=== PATIENT | male | born 1960 | race Caucasian/White ===

== ENCOUNTER → 2017-09-10 | Outpatient (CLI) | payer OTHER | LOC: M CARPUL 08:11 | DX: I35.8 Other nonrheumatic aortic valve disorders (principal) | CPT/HCPCS: 93306 ==

== ENCOUNTER → 2019-05-12 | Outpatient (REF) | payer OTHER ==
[2019-05-12 11:43] LABS: BASO % 0.4 % (0.0-1.0); EOS # 0.2 10^3/uL (0.0-0.5); EOS % 2.9 % (0.0-3.0); HEMATOCRIT 46.5 % (42.0-52.0); HEMOGLOBIN 15.7 g/dl (13.5-17.5); LYMPH # 1.3 10^3/uL (1.5-5.0); LYMPH % 23.9 % (24.0-44.0); MEAN CORPUSCULAR HEMOGLOBIN 29.6 pg (27.0-33.0); MEAN CORPUSCULAR HGB CONC 33.8 g/dl (32.0-36.5); MEAN CORPUSCULAR VOLUME 87.7 fl (80.0-96.0); MONO # 0.5 10^3/uL (0.0-0.8); MONO % 8.9 % (0.0-5.0); NEUTROPHILS # 3.5 10^3/uL (1.5-8.5); NEUTROPHILS % 63.4 % (36.0-66.0); PLATELET COUNT, AUTOMATED 218 10^3/uL (150-450); WHITE BLOOD COUNT 5.5 10^3/uL (4.0-10.0)
[2019-05-12 12:11] LABS: ALBUMIN 4.1 GM/DL (3.2-5.2); ALT/SGPT 22 U/L (12-78); BILIRUBIN,TOTAL 0.8 MG/DL (0.2-1.0); BLOOD UREA NITROGEN 8 MG/DL (7-18); CALCIUM LEVEL 9.3 MG/DL (8.5-10.1); CARBON DIOXIDE LEVEL 29 MEQ/L (21-32); CHLORIDE LEVEL 105 MEQ/L (98-107); CHOLESTEROL LEVEL 176 MG/DL (<200); CHOLESTEROL RISK RATIO 3.744 (<5); CREATININE FOR GFR 0.79 MG/DL (0.70-1.30); GLOMERULAR FILTRATION RATE > 60.0 (>56); GLUCOSE, FASTING 96 MG/DL (70-100); HDL CHOLESTEROL 47 MG/DL (>40); LDL CHOLESTEROL 113 MG/DL (<100); NON-HDL-C 129 MG/DL; POTASSIUM SERUM 4.1 MEQ/L (3.5-5.1); SODIUM LEVEL 141 MEQ/L (136-145); TOTAL PROTEIN 7.4 GM/DL (6.4-8.2); TRIGLYCERIDES LEVEL 78 MG/DL (<150)
== END ==
LOC: M SFHCLERA 09:05
PROVIDERS: ATTEND Nurse Practitioner Family
DX: R10.32 Left lower quadrant pain (principal); Z13.220 Encounter for screening for lipoid disorders

== ENCOUNTER → 2019-05-14 | Outpatient (CLI) | payer OTHER ==
[~2019-05-14] MED LIST: propofoL 200 MG/20 ML VIAL As Ordered ONE
--- NOTE | 2019-05-14 08:06 | REP ---
Clinical: Left inguinal/scrotal pain. Technique: Real time chen scale and color Doppler evaluation using linear high frequency Findings: Left-sided fat containing inguinal hernia with a defect of approximately 1.7 cm. The bilateral testicles are normal in contour, size, echogenicity without torsion, infectious/inflammatory process, or mass lesion. Right testicle measures 4.7 x 2.5 x 3.4 cm. Left testicle measures 4.6 x 2.4 x 3.0 cm. Left epididymal cyst measures 7 x 3 x 9 mm. Small left-sided varicoceles measure up to 2.7 mm diameter. Small right hydrocele. Impression: 1. Moderate fat containing left inguinal hernia. 2. Further findings as described above. Electronically Signed by Joseph Kyle MD 05/14/2019 07:59 A
== END ==
LOC: M RAD 06:48
PROVIDERS: ATTEND Nurse Practitioner Family
DX: K40.90 Unilateral inguinal hernia, without obstruction or gangrene, not specified as recurrent (principal)

== ENCOUNTER 2019-05-15 09:53 | Day surgery (SDC) | payer OTHER ==
[~2019-05-15] VITALS: Ht 180.3 cm; Wt 82.5 kg
[~2019-05-15 09:53] MED LIST changes: +NS 1,000 ML IV ONE; -propofoL 200 MG/20 ML VIAL As Ordered ONE
[2019-05-15] MEDS ORDERED: NS 1,000 ML IV ONE (10:30)
--- NOTE | 2019-05-15 12:15 | ROOR ---
Patient Name: Albino Russ Procedure Date: 05/15/2019 11:40 AM Date of : 1960 Age: 58 Room: [facility] Gender: Male Note Status: Finalized Procedure: Colonoscopy Indications: Hematochezia Providers: Konstantin VIRGEN MD Referring MD: Gely QUICK Requesting Provider: Medicines: Monitored Anesthesia Care Complications: No immediate complications. Procedure: Pre-Anesthesia Assessment: - The heart rate, respiratory rate, oxygen saturations, blood pressure, adequacy of pulmonary ventilation, and response to care were monitored throughout the procedure. The Colonoscope was introduced through the anus and advanced to the terminal ileum, with identification of the appendiceal orifice and IC valve. The colonoscopy was performed without difficulty. The patient tolerated the procedure well. The quality of the bowel preparation was good. Findings: The perianal and digital rectal examinations were normal. A polypoid non-obstructing polypoid mass was found in the recto-sigmoid colon (at 17 cm from anal verge). The mass was non-circumferential. The mass measured three cm in length. Oozing was present. This was biopsied with a cold forceps for histology. Area was tattooed with an injection of Puja ink. (tattoo placed just distal to the mass). The exam was otherwise without abnormality. Impression: - 3 cm polypoid ulcerated mass in the recto-sigmoid colon (at 17 cm from verge). Biopsied. Tattooed distal to mass. - The examination was otherwise normal. Recommendation: - Refer to a surgeon at the next available appointment. - Perform CT scan (computed tomography) of the pelvis with contrast at the next available appointment. - My office will call you in the next few days to set you up for this study/exam. Konstantin Virgen MD Konstantin VIRGEN MD 05/15/2019 12:15:13 PM Electronically signed by Konstantin VIRGEN MD Number of Addenda: 0 Note Initiated On: 05/15/2019 11:40 AM Estimated Blood Loss: Estimated blood loss: none.
[2019-05-15 12:40] VITALS: BP 130/74
== END 2019-05-15 12:46 | disposition home or self-care (01) ==
LOC: M OPP 09:53
PROVIDERS: ATTEND Internal Medicine Gastroenterology
DX: C19 Malignant neoplasm of rectosigmoid junction (principal); K92.1 Melena; Z88.0 Allergy status to penicillin; Z88.2 Allergy status to sulfonamides

== ENCOUNTER → 2019-05-21 | Outpatient (CLI) | payer OTHER ==
[~2019-05-21] MED LIST changes: +GASTROGRAFIN SOLUTION 30ML (Q9963) As Ordered ONE; +ISOVUE-370 76% 100ML VIAL (Q9967) As Ordered ONE; -NS 1,000 ML IV ONE
--- NOTE | 2019-05-22 07:10 | REP ---
Clinical: Given history of colon cancer. Technique: Axial contrast enhanced images from the lung bases to the pubic symphysis using 100 ml Isovue 370 intravenous contrast material with coronal and sagittal re-formations. Delayed images of the abdomen obtained. Comparison: None. Findings: Lung bases are clear. Liver demonstrates 1 cm hepatic cyst without further hepatic abnormality noted. Spleen, pancreas, gallbladder, bilateral adrenal glands and left kidney are normal. 3.7 cm right renal mass along the medial mid pole is identified and requires further investigation. No perirenal adenopathy or significant perinephric stranding is appreciated. No hydronephrosis. Incidental 9 mm right renal cyst. Evaluation of the enteric system is without obstruction. There is a somewhat irregular area of mucosal thickening involving the distal sigmoid colon (images 110 - 117) which may reflect malignancy as per the given history. Small pelvic lymph nodes are nonspecific. Colonic diverticulosis noted without acute diverticulitis. Normal terminal ileum, cecum and appendix identified in the right lower quadrant. The Further evaluation the pelvis demonstrates grossly normal bladder and age appropriate prostate/seminal vesicles. Fat containing left inguinal hernia noted. No ascites. No free air. Abdominal aorta and vasculature grossly normal. Musculoskeletal structures demonstrate degenerative changes without focal abnormality. Impression: 1. 3.7 cm right renal mass is consistent with malignancy unless proven otherwise and requires urology consultation. 2. Short segment of asymmetric wall thickening involving the distal sigmoid colon may reflect the given history of neoplasm. Small nonspecific pelvic lymph nodes noted. No ascites. 3. Fat containing left inguinal hernia. 4. Diverticulosis. Electronically Signed by Joseph Kyle MD 05/22/2019 07:01 A
== END ==
LOC: M RAD 06:56
PROVIDERS: ATTEND Internal Medicine Gastroenterology
DX: C19 Malignant neoplasm of rectosigmoid junction (principal); K40.90 Unilateral inguinal hernia, without obstruction or gangrene, not specified as recurrent; N28.89 Other specified disorders of kidney and ureter
CPT/HCPCS: 74177; Q9963; Q9967

== ENCOUNTER → 2019-05-28 | Outpatient (CLI) | payer OTHER | LOC: M LAB 09:56 | PROVIDERS: ATTEND Surgery | DX: C19 Malignant neoplasm of rectosigmoid junction (principal) ==

== ENCOUNTER → 2019-06-09 | Outpatient (CLI) | payer OTHER ==
[2019-06-09 13:33] LABS: HEMATOCRIT 47.5 % (42.0-52.0); HEMOGLOBIN 16.3 g/dl (13.5-17.5); MEAN CORPUSCULAR HGB CONC 34.3 g/dl (32.0-36.5); MEAN CORPUSCULAR VOLUME 87.3 fl (80.0-96.0); PLATELET COUNT, AUTOMATED 227 10^3/uL (150-450); RED BLOOD COUNT 5.44 10^6/uL (4.30-6.10); WHITE BLOOD COUNT 5.6 10^3/uL (4.0-10.0)
[2019-06-09 13:48] LABS: INR 1.07; PROTHROMBIN TIME 13.6 SECONDS (11.8-14.0)
[2019-06-09 14:02] LABS: BLOOD UREA NITROGEN 18 MG/DL (7-18); CALCIUM LEVEL 9.6 MG/DL (8.5-10.1); CARBON DIOXIDE LEVEL 32 MEQ/L (21-32); CHLORIDE LEVEL 105 MEQ/L (98-107); CREATININE FOR GFR 0.78 MG/DL (0.70-1.30); GLOMERULAR FILTRATION RATE > 60.0 (>56); GLUCOSE, FASTING 101 MG/DL (70-100); POTASSIUM SERUM 4.5 MEQ/L (3.5-5.1); SODIUM LEVEL 139 MEQ/L (136-145)
== END ==
LOC: M LRY 11:20
PROVIDERS: ATTEND Urology
DX: Z01.818 Encounter for other preprocedural examination (principal); N28.89 Other specified disorders of kidney and ureter

== ENCOUNTER 2019-06-15 06:01 | Inpatient (IN) | payer OTHER ==
[~2019-06-15] VITALS: Ht 180.3 cm; Wt 81.7 kg
[2019-06-15] VITALS (9 sets, daily range): BP systolic 140–164; BP diastolic 88–98
[~2019-06-15 06:01] MED LIST changes: +ERTAPENEM SODIUM 1 GM in NS MINI-BAG PLUS 50 ML IV ONE; -GASTROGRAFIN SOLUTION 30ML (Q9963) As Ordered ONE; -ISOVUE-370 76% 100ML VIAL (Q9967) As Ordered ONE; +LR 1,000 ML IV ONE
[2019-06-15] MEDS ORDERED: ceFAZolin SOD 2 GM in IV 1 EA IV ONE (07:00)
[2019-06-15] MEDS ORDERED: LIDOCAINE 1% SDV INJ 30 ML VIAL As Ordered ONE (07:20)
[2019-06-15] MEDS ORDERED: BUPIVACAINE/EPIN 0.25% 30 ML VIAL As Ordered ONE (07:20)
[2019-06-15] MEDS ORDERED: BUPIVACAINE HCL 0.25% 30 ML VIAL As Ordered ONE (07:20)
[2019-06-15] MEDS ORDERED: SUGAMMADEX SODIUM 500 MG/5 ML VIAL (BRIDION) As Ordered ONE (08:10)
[2019-06-15] MEDS ORDERED: propofoL 200 MG/20 ML VIAL As Ordered ONE (08:10)
[2019-06-15] MEDS ORDERED: LIDOCAINE 2% INJ 100 MG/5 ML SDV (FOR ANES.) As Ordered ONE (08:10)
[2019-06-15] MEDS ORDERED: MIDAZOLAM INJ 2 MG/2 ML VIAL (J2250) As Ordered ONE (08:10)
[2019-06-15] MEDS ORDERED: fentaNYL 250 MCG/5 ML INJECTION (J3010) As Ordered ONE (08:10)
[2019-06-15] MEDS ORDERED: HYDROmorphone HCL 2 MG/ML 1ML VIAL (J1170) As Ordered ONE (08:10)
[2019-06-15] MEDS ORDERED: METOCLOPRAMIDE INJ 10MG/2ML VIAL (J2765) As Ordered ONE (08:10)
[2019-06-15] MEDS ORDERED: ONDANSETRON 4MG/2ML VIAL (J2405) As Ordered ONE (08:10)
[2019-06-15] MEDS ORDERED: ROCURONIUM BROMIDE 50 MG/5 ML VIAL As Ordered ONE ×3 (08:10→11:32)
[2019-06-15] MEDS ORDERED: dexameTHASONE 4 MG/ML 1ML VIAL (J1100) As Ordered ONE (08:10)
[2019-06-15] MEDS ORDERED: REMIFENTANIL 1MG 3ML VIAL As Ordered ONE ×3 (08:13→10:11)
[2019-06-15] MEDS ORDERED: DESFLURANE 240 ML INHALANT As Ordered ONE (09:46)
[2019-06-15] MEDS ORDERED: ACETAMINOPHEN 1000MG 100ML IV BTL (OFIRMEV) (J0131 PER 10MG) As Ordered ONE (11:32)
[2019-06-15] MEDS ORDERED: LABETALOL HCL 100 MG/20 ML VIAL As Ordered ONE (11:43)
--- NOTE | 2019-06-15 12:14 | ROOPDOC ---
[facility] Report Of Operation Report of Operation DATE OF PROCEDURE: 06/15/19 PREPROCEDURE DIAGNOSES: Right Renal Neoplasm. POSTPROCEDURE DIAGNOSES: Right Renal Neoplasm. PROCEDURE: Right Robotic-assisted Laparoscopic Radical Nephrectomy (adrenal- sparing). SURGEON: Alfredo Corral MD FORMING DEPARTMENT SUPERVISOR: Asuncion Cunningham NP ANESTHESIA: General OPERATIVE INDICATIONS: This is a 58 year old female with an approximately 4cm enhancing solid central right renal neoplasm concerning for malignancy. 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 He was brought to the operating room today for treatment of his right renal neoplasm by and his rectosigmoid cancer by Dr. Magaña. DESCRIPTION OF PROCEDURE: The patient was brought to the operating room and general anesthesia was induced. Prophylactic antibiotics were infused. A Stover catheter was placed under sterile conditions. The patient was then placed in the left lateral decubitus position. All pressure points were appropriately padded and an axillary roll was placed. He was secured to the table with tape. The patient was then prepped and draped in the usual sterile fashion. The initial incision was for an 8mm port in line with the 11th rib along the lateral rectus margin. A Veress needle was then utilized to achieve the pneumoperitoneum. An 8mm port was then placed in through this incision and through which the camera was inserted. There were no injuries from Veress needle placement or initial trocar placement. The remaining ports were then placed under vision. The right hand robotic port was placed along the costal margin in line with the camera port. A 5 mm port was placed just inferior to the xyphoid for access for a liver retractor. Two left robotic ports were placed with one just inferior to the camera port, and the other between the anterior-superior iliac spine and the umbilicus. A 15mm assistant corporation counsel port was placed in between the camera port and the more cephalad left hand robotic port. The robot was then docked. We started by lifting up the liver with a laparoscopic locking Allis clamp. Next the right colon was dissected off of Gerota's fascia. We then Kocherized the duodenum. At this point the inferior vena cava (IVC) was identified. A plane was made onto the lateral aspect of the IVC and this was carried cephalad until the first of the 3 right renal veins was encountered. This was carefully dissected and just inferior to this vein, the right renal artery was identified. This was carefully dissected. The first vein was then ligated and transected with a 45mm robotic vascular stapler. The renal artery was then ligated with 3 Weck clips and transected, leaving 2 Weck clips on the stay side. A second renal vein was encountered more distally on the IVC and was carefully dissected. It was then ligated and transected with a 45mm robotic vascular stapler. The 3rd vein was then identified and was much smaller than the first two. This vein was ligated with Weck clips and then transected. The kidney was then carefully dissected on all sides. The adrenal gland was identified on the upper aspect of the kidney and was dissected away from the kidney using electrocautery. The ureter was identified on the distal aspect and was ligated with Weck clips and then transected. Once this was done the kidney was freed completely. Denisse hemostatic agent was applied over the hilar vessels. The kidney was then placed in a large Endocatch bag for future retrieval. The liver retractor was then removed and the robot was undocked after confirming hemostasis within the abdomen. At this point all of the ports were removed and the case was handed over to Dr. Magaña for him to perform a bowel resection for treatment of the patient's rectosigmoid cancer. The patient tolerated this portion of the procedure very well. ESTIMATED BLOOD LOSS: 5mL INTRAOPERATIVE COMPLICATIONS: None SPECIMENS: Right kidney PLAN: Once Dr. Magaña completes his portion of the procedure, he will extract his specimen and the kidney. The patient will be watched in house until his kidney function is stable and he has return of bowel function. ALFREDO CORRAL MD Jun 15, 2019 12:14
[2019-06-15] MEDS ORDERED: ePHEDrine SULFATE 25 MG/5 ML(5MG/ML) SYRINGE As Ordered ONE (13:39)
[2019-06-15] MEDS ORDERED: PHENYLephrine HCL 500 MCG/5 ML (100MCG/ML) SYRINGE (J2370) As Ordered ONE (13:39)
[2019-06-15] MEDS ORDERED: fentaNYL 100 MCG/2 ML INJECTION (J3010) As Ordered ONE (13:44)
[2019-06-15] MEDS ORDERED: METOCLOPRAMIDE INJ 10MG/2ML VIAL (J2765) IV PRN (14:30)
[2019-06-15] MEDS ORDERED: PERCOCET 5MG/325MG TAB PO PRN (14:30)
[2019-06-15] MEDS ORDERED: fentaNYL 100 MCG/2 ML INJECTION (J3010) IV PRN (14:30)
[2019-06-15] MEDS ORDERED: LR 1,000 ML IV SCH (14:30)
[2019-06-15] MEDS ORDERED: ONDANSETRON 4MG/2ML VIAL (J2405) IV PRN ×2 (14:30→14:45)
[2019-06-15] MEDS ORDERED: MORPHINE 2 MG/ML 1ML VIAL (J2270) IV PRN (14:45)
[2019-06-15] MEDS ORDERED: ACETAMINOPHEN TAB 650MG DOSE (2X325MG) PO PRN (14:45)
[2019-06-15] MEDS: LR 1,000 ML IV SCH (15:00)
[2019-06-15] MEDS: NORCO, ANEXSIA 5/325MG TABLET (HYDROcodone/ACETAMINOPHEN) PO PRN (18:56)
[2019-06-15] MEDS: SENOKOT S TAB PO SCH (20:26)
[2019-06-16] MEDS: LR 1,000 ML IV SCH ×3 (00:09→16:52)
[2019-06-16 02:15] VITALS: BP 139/86
[2019-06-16 06:00] VITALS: BP 146/90
[2019-06-16 06:25] LABS: HEMATOCRIT 42.8 % (42.0-52.0); HEMOGLOBIN 14.6 g/dl (13.5-17.5); MEAN CORPUSCULAR HEMOGLOBIN 29.6 pg (27.0-33.0); MEAN CORPUSCULAR HGB CONC 34.1 g/dl (32.0-36.5); MEAN CORPUSCULAR VOLUME 86.6 fl (80.0-96.0); PLATELET COUNT, AUTOMATED 159 10^3/uL (150-450); RED BLOOD COUNT 4.94 10^6/uL (4.30-6.10); WHITE BLOOD COUNT 7.1 10^3/uL (4.0-10.0)
[2019-06-16 06:47] LABS: ALBUMIN 3.2 GM/DL (3.2-5.2); ALT/SGPT 46 U/L (12-78); BLOOD UREA NITROGEN 14 MG/DL (7-18); CALCIUM LEVEL 8.5 MG/DL (8.5-10.1); CARBON DIOXIDE LEVEL 28 MEQ/L (21-32); CHLORIDE LEVEL 103 MEQ/L (98-107); CREATININE FOR GFR 1.21 MG/DL (0.70-1.30); GLOMERULAR FILTRATION RATE > 60.0 (>56); GLUCOSE, FASTING 128 MG/DL (70-100); SODIUM LEVEL 135 MEQ/L (136-145); TOTAL PROTEIN 6.5 GM/DL (6.4-8.2)
[2019-06-16] MEDS ORDERED: ERTAPENEM SODIUM 1 GM in NS MINI-BAG PLUS 50 ML IV SCH (08:00)
[2019-06-16] MEDS: PANTOPRAZOLE 40MG TAB (PROTONIX) PO SCH (08:20)
[2019-06-16] MEDS: SENOKOT S TAB PO SCH ×2 (08:20→20:17)
[2019-06-16] MEDS: NORCO, ANEXSIA 5/325MG TABLET (HYDROcodone/ACETAMINOPHEN) PO PRN ×3 (08:21→21:11)
[2019-06-16] MEDS: ENOXAPARIN 40 MG/0.4 ML SYRINGE (J1650) SC SCH (08:21)
--- NOTE | 2019-06-16 09:29 | IPNPDOC ---
Subjective Review oF Systems Chief Complaint The patient is a 58-year-old male admitted with a reason for visit of Rectosigmoid Mass. Events since Last Encounter No acute events o/n. Good pain control. No n/v. No f/c/ns. Objective Physical Examination General Exam: Alert, Cooperative, No Acute Distress ABDOMEN EXAM: Soft, Tenderness (mild), Other (incisions clean/dry/intact; VINAY w/ serosang output) Neuro Exam: Normal Speech Psych Exam: Mental status NL, Mood NL Other physical findings catheter draining clear urine Vital Signs/I&O Vital Signs Date Time Temp Pulse Resp B/P (MAP) Pulse Ox O2 Delivery O2 Flow Rate FiO2 06/16/19 08:21 18 06/16/19 06:00 99.2 85 146/90 (108) 95 Nasal Cannula 2.0 I&O- Last 24 Hours up to 6 AM 06/16/19 06:00 Intake Total 7720 ml Output Total 4035 ml Balance 3685 ml Laboratory Data Labs 24H Laboratory Tests 2 06/16/19 05:57: Nucleated Red Blood Cells % (auto) 0.0, Anion Gap 4L, Glomerular Filtration Rate > 60.0, Calcium Level 8.5, Total Bilirubin 1.0, Aspartate Amino Transf (AST/SGOT) 38H, Alanine Aminotransferase (ALT/SGPT) 46, Alkaline Phosphatase 41L, Total Protein 6.5, Albumin 3.2, Albumin/Globulin Ratio 0.97L CBC/BMP Laboratory Tests 06/16/19 05:57 Assessment/Plan Date Seen The patient was seen on 06/16/19. Patient Summary This is a 58 y/o M POD1 s/p R robotic radical nephrectomy (adrenal-sparing) and resection of rectosigmoid mass. He is doing well. Hb 14.6. Cr 1.2, from baseline of 0.8. Good UOP. Plan/VTE VTE Prophylaxis Ordered?: Yes VTE Exclusion Mechanical Proph: N/A:VTE Prophy Ordered VTE Exclusion Pharmacological: N/A:VTE Prophy Ordered Plan/Urinary Catheter Urinary Catheter: D/C Stover Plan - d/c Stover - ok to d/c IVF when patient is taking PO well - encourage PO hydration - strict I/Os - ambulate - diet per general surgery ALFREDO CORRAL MD Jun 16, 2019 09:29
[2019-06-16 10:00] VITALS: BP 152/92
--- NOTE | 2019-06-16 10:38 | RO ---
DATE OF PROCEDURE: 06/15/2019 PREOPERATIVE DIAGNOSIS: Rectosigmoid cancer. POSTOPERATIVE DIAGNOSIS: High rectal cancer. PROCEDURE: Robotic low anterior resection. SURGEON: Dr. Dayo Magaña ASSIST: Dr. Soler, assisted with mobilization of the colon and the anastomosis. ANESTHESIA: General. ESTIMATED BLOOD LOSS (EBL): 30 mL. COMPLICATIONS: None. INDICATIONS FOR PROCEDURE: The patient is a 58-year-old male who had a rectosigmoid mass identified on colonoscopy. Recommendation was to proceed with robotic resection. Risks and benefits of the procedure, not limited to but including, bleeding, infection, hernia formation, damage to surrounding structures, anastomotic leak, and need for further surgery were discussed in detail with the patient. Informed consent was obtained, and procedure was planned. DESCRIPTION OF PROCEDURE: The patient was brought back to operating room 7. After sufficient sedation, the abdomen was sterilely prepped and draped. Next, a time-out was done to confirm proper patient, brought procedure. Following that, an 8 mm port was placed through the previous 15 mm port site that Dr. Valle had used during his right nephrectomy, just lateral to the umbilicus. Once that port was placed, with blunt trocar, the abdomen was insufflated through it up to 50 mmHg. That port was then removed from that port site a little lateral to his right upper quadrant port site. I used his same 12 mm port in the right lower quadrant and his 8 mm port in the right lower quadrant and created a new 8 mm port in the left epigastric area. Once the four ports were placed, robot was connected to the ports. The robot was then docked from the console. The colon was examined until the tattoo site was identified, which was very low. Once that was identified, the colon was mobilized starting lateral to medial taking down the peritoneal reflections along the lateral side of the sigmoid colon all the way down into the rectum. I continued that process from lateral to medial until the ureter was identified. Once that was completed, the colon anteriorly and was going from medial to lateral dissected through the mesentery all the way through, ligating the vessels using the vessel sealer taking down the mesentery all way down until I was at least 5 cm distal to the tattoo location. Once that was completed, the robotic 45 mm stapler with a green load was used. Two separate fires were necessary to transect the colon, which ended up being low to mid rectum. Once that was completed, the distal end of the colon was pulled up out of the pelvis, and the sigmoid was placed down into the pelvis to make sure that there was enough length of the colon mobilized to be able to easily reanastomose. Once that was completed, the anastomosis location was identified. The clip was placed on the mesentery and to identify the location for the transected bowel and make the anastomosis. Once that was completed, the end of the colon was grabbed with a laparoscopic grasper. The bag for the kidney was also grabbed with a grasper. Next, the midline minilaparotomy was created periumbilically. Using cautery, the kidney was removed first and then a wound protector was placed and the colon was brought out. The mesentery was taken down a little bit around the sigmoid where the anastomosis was to be created. The bowel was transected. EEA sizers were placed to determine the size of colon. EEA 25 stapler was then chosen, anvil was placed inside the colon. The colon was stapled across using a KURT-75 blue-load stapler. The anvil was then brought out through the end, and a #3-0 Vicryl suture was placed around it to make sure that there was no leakage. The bowel was placed back inside the abdomen. The 12 port and 15 port sites, fascia was closed from the inside using interrupted figure-of-8 #0 Vicryl sutures. The fascia along the midline incision was then closed with a running #1 PDS suture. Once that was completed, the abdomen was re-insufflated. The anvil was placed down into the pelvis. The EEA stapler was brought in through the rectum. The anastomosis was created. Air was then insufflated into the rectum, and liquid instilled into the pelvis, and were no signs of any air bubbles or leakage. Air was then aspirated out. The Tisseel was placed around the anastomosis. A 19-Tajik Jose drain was then placed into the pelvis and brought out through the right inferior port site, sutured in place with a #2-0 silk suture. The abdomen was then desufflated. Skin incisions were closed with anai. The abdomen cleaned and dried, 4x4 and tape were applied, thus ending procedure.
[2019-06-16 14:00] VITALS: BP 153/90
[2019-06-16 18:00] VITALS: BP 156/90
--- NOTE | 2019-06-16 20:48 | IPNPDOC ---
Text Note Date of Service The patient was seen on 06/16/19. NOTE No acute events overnight. Pain is minimal. No complaints. No flatus or BM, and he has not been out of bed yet. Tolerating clq diet. No nausea or emesis. VSSAF NAD abd - soft, non distended, tender to palpation appropriate, dressing c/d/i, drain is serosanguinous labs - below A) 58y/o male s/p rt nephrectomy and LAR P) clq diet amb in [place] IS advance diet after flatus monitor labs d/c melecio Magaña DO VS,Fishbone, I+O VS, Fishbone, I+O Laboratory Tests 06/16/19 05:57 Vital Signs Date Time Temp Pulse Resp B/P (MAP) Pulse Ox O2 Delivery O2 Flow Rate FiO2 06/16/19 18:00 99.8 113 20 156/90 (112) 95 Nasal Cannula 2.0 I&O- Last 24 Hours up to 6 AM 06/16/19 06:00 Intake Total 7720 ml Output Total 4035 ml Balance 3685 ml MARGY MAGAÑA DO Jun 16, 2019 20:48
[2019-06-16 22:00] VITALS: BP 148/94
[2019-06-17 02:00] VITALS: BP 148/97
[2019-06-17] MEDS: NORCO, ANEXSIA 5/325MG TABLET (HYDROcodone/ACETAMINOPHEN) PO PRN ×3 (03:25→19:45)
[2019-06-17 06:00] VITALS: BP 146/97
[2019-06-17 06:24] LABS: HEMOGLOBIN 14.3 g/dl (13.5-17.5); MEAN CORPUSCULAR HEMOGLOBIN 29.5 pg (27.0-33.0); MEAN CORPUSCULAR VOLUME 86.8 fl (80.0-96.0); PLATELET COUNT, AUTOMATED 165 10^3/uL (150-450); RED BLOOD COUNT 4.84 10^6/uL (4.30-6.10); WHITE BLOOD COUNT 8.5 10^3/uL (4.0-10.0)
[2019-06-17 06:46] LABS: ALBUMIN 3.2 GM/DL (3.2-5.2); ALT/SGPT 63 U/L (12-78); BILIRUBIN,TOTAL 1.1 MG/DL (0.2-1.0); BLOOD UREA NITROGEN 12 MG/DL (7-18); CALCIUM LEVEL 8.8 MG/DL (8.5-10.1); CARBON DIOXIDE LEVEL 27 MEQ/L (21-32); CHLORIDE LEVEL 105 MEQ/L (98-107); CREATININE FOR GFR 1.14 MG/DL (0.70-1.30); GLOMERULAR FILTRATION RATE > 60.0 (>56); GLUCOSE, FASTING 101 MG/DL (70-100); POTASSIUM SERUM 3.9 MEQ/L (3.5-5.1); SODIUM LEVEL 137 MEQ/L (136-145); TOTAL PROTEIN 6.9 GM/DL (6.4-8.2)
--- NOTE | 2019-06-17 07:35 | IPNPDOC ---
Text Note Date of Service The patient was seen on 06/17/19. NOTE No acute events overnight. Pain is minimal. No complaints. No flatus or BM. T olerating clq diet. No nausea or emesis. VSSAF NAD abd - soft, non distended, tender to palpation appropriate, dressing c/d/i, drain is serosanguinous and clearing up labs - below A) 58y/o male s/p rt nephrectomy and LAR P) flq diet amb in [place] IS advance diet after flatus monitor labs Viktor Magaña DO VS,Fishbone, I+O VS, Fishbone, I+O Laboratory Tests 06/17/19 05:59 Vital Signs Date Time Temp Pulse Resp B/P (MAP) Pulse Ox O2 Delivery O2 Flow Rate FiO2 06/17/19 04:03 16 Room Air 06/17/19 02:00 100.1 106 148/97 (114) 93 06/16/19 18:00 2.0 I&O- Last 24 Hours up to 6 AM 06/17/19 06:00 Intake Total 4280 ml Output Total 5905 ml Balance -1625 ml MARGY MAGAÑA DO Jun 17, 2019 07:35
--- NOTE | 2019-06-17 07:36 | IPNPDOC ---
Subjective Review oF Systems Chief Complaint The patient is a 58-year-old male admitted with a reason for visit of Rectosigmoid Mass. Events since Last Encounter No acute events o/n. Good pain control. Ambulated slowly but w/o difficulty yesterday. Tolerating clears. No n/v. No flatus yet. No f/c/ns. Objective Physical Examination General Exam: Alert, Cooperative, No Acute Distress ABDOMEN EXAM: Soft, Tenderness (mild), Other (incisions clean/dry/intact; VINAY w/ serosang output) Skin Exam: Nl turgor and temperature Neuro Exam: Normal Speech Psych Exam: Mental status NL, Mood NL Vital Signs/I&O Vital Signs Date Time Temp Pulse Resp B/P (MAP) Pulse Ox O2 Delivery O2 Flow Rate FiO2 06/17/19 04:03 16 Room Air 06/17/19 02:00 100.1 106 148/97 (114) 93 06/16/19 18:00 2.0 I&O- Last 24 Hours up to 6 AM 06/17/19 06:00 Intake Total 4280 ml Output Total 5905 ml Balance -1625 ml Laboratory Data Labs 24H Laboratory Tests 2 06/17/19 05:59: Nucleated Red Blood Cells % (auto) 0.0, Anion Gap 5L, Glomerular Filtration Rate > 60.0, Calcium Level 8.8, Total Bilirubin 1.1H, Aspartate Amino Transf (AST/SGOT) 38H, Alanine Aminotransferase (ALT/SGPT) 63, Alkaline Phosphatase 40L, Total Protein 6.9, Albumin 3.2, Albumin/Globulin Ratio 0.86L CBC/BMP Laboratory Tests 06/17/19 05:59 Assessment/Plan Date Seen The patient was seen on 06/17/19. Patient Summary This is a 58 y/o M POD2 s/p R robotic radical nephrectomy (adrenal-sparing) and LAR. Doing well. Cr 1.1. Very good UOP. Plan/VTE VTE Prophylaxis Ordered?: Yes VTE Exclusion Mechanical Proph: N/A:VTE Prophy Ordered VTE Exclusion Pharmacological: N/A:VTE Prophy Ordered Plan/Urinary Catheter Urinary Catheter: D/C Stover Plan - encourage PO hydration - ambulate - norco prn pain - strict I/Os - SCDs in bed - lovenox - diet per gen surg ALFREDO CORRAL MD Jun 17, 2019 07:36
[2019-06-17] MEDS ORDERED: FLUBLOK(EGG FREE)(QUAD)INFLUENZA VACC 0.5ML SYRINGE (90682)18YRS&OLDER IM ONE (09:00)
[2019-06-17] MEDS: PANTOPRAZOLE 40MG TAB (PROTONIX) PO SCH (09:44)
[2019-06-17] MEDS: ENOXAPARIN 40 MG/0.4 ML SYRINGE (J1650) SC SCH (09:44)
[2019-06-17] MEDS: SENOKOT S TAB PO SCH ×2 (09:44→20:13)
[2019-06-17 10:00] VITALS: BP 135/95
[2019-06-17 14:00] VITALS: BP 152/98
[2019-06-17 18:00] VITALS: BP 145/97
[2019-06-17 22:00] VITALS: BP 142/92
[2019-06-18 02:00] VITALS: BP 131/88
[2019-06-18 06:00] VITALS: BP 146/89
[2019-06-18 06:14] LABS: HEMOGLOBIN 14.7 g/dl (13.5-17.5); MEAN CORPUSCULAR HEMOGLOBIN 29.6 pg (27.0-33.0); MEAN CORPUSCULAR HGB CONC 33.4 g/dl (32.0-36.5); MEAN CORPUSCULAR VOLUME 88.5 fl (80.0-96.0); PLATELET COUNT, AUTOMATED 173 10^3/uL (150-450); RED BLOOD COUNT 4.97 10^6/uL (4.30-6.10); WHITE BLOOD COUNT 7.4 10^3/uL (4.0-10.0)
[2019-06-18 06:28] LABS: ALBUMIN 3.2 GM/DL (3.2-5.2); ALT/SGPT 48 U/L (12-78); BILIRUBIN,TOTAL 0.9 MG/DL (0.2-1.0); BLOOD UREA NITROGEN 14 MG/DL (7-18); CALCIUM LEVEL 8.5 MG/DL (8.5-10.1); CARBON DIOXIDE LEVEL 30 MEQ/L (21-32); CHLORIDE LEVEL 104 MEQ/L (98-107); CREATININE FOR GFR 1.25 MG/DL (0.70-1.30); GLOMERULAR FILTRATION RATE > 60.0 (>56); GLUCOSE, FASTING 99 MG/DL (70-100); SODIUM LEVEL 138 MEQ/L (136-145); TOTAL PROTEIN 7.2 GM/DL (6.4-8.2)
--- NOTE | 2019-06-18 08:11 | IPNPDOC ---
Subjective Review oF Systems Chief Complaint The patient is a 58-year-old male admitted with a reason for visit of Rectosigmoid Mass. Events since Last Encounter No acute events o/n. Good pain control. Tolerating diet. Had a bm yesterday and this morning. No n/v. Ambulating well. No f/c/ns. Objective Physical Examination General Exam: Alert, Cooperative, No Acute Distress ABDOMEN EXAM: Soft, Tenderness (mild), Other (incisions clean/dry/intact; VINAY w/ serous output) Skin Exam: Nl turgor and temperature Neuro Exam: Normal Speech Psych Exam: Mental status NL, Mood NL Vital Signs/I&O Vital Signs Date Time Temp Pulse Resp B/P (MAP) Pulse Ox O2 Delivery O2 Flow Rate FiO2 06/18/19 06:00 100.0 91 17 146/89 (108) 95 Room Air 06/16/19 18:00 2.0 I&O- Last 24 Hours up to 6 AM 06/18/19 06:00 Intake Total 1750 ml Output Total 1795 ml Balance -45 ml Laboratory Data Labs 24H Laboratory Tests 2 06/18/19 05:50: Nucleated Red Blood Cells % (auto) 0.0, Anion Gap 4L, Glomerular Filtration Rate > 60.0, Calcium Level 8.5, Total Bilirubin 0.9, Aspartate Amino Transf (AST/SGOT) 18, Alanine Aminotransferase (ALT/SGPT) 48, Alkaline Phosphatase 41L, Total Protein 7.2, Albumin 3.2, Albumin/Globulin Ratio 0.80L CBC/BMP Laboratory Tests 06/18/19 05:50 Assessment/Plan Date Seen The patient was seen on 06/18/19. Patient Summary This is a 58 y/o M POD3 s/p R robotic radical nephrectomy (adrenal-sparing) and LAR. Hb stable. Cr 1.25. Very good UOP. Plan/VTE VTE Prophylaxis Ordered?: Yes VTE Exclusion Mechanical Proph: N/A:VTE Prophy Ordered VTE Exclusion Pharmacological: N/A:VTE Prophy Ordered Plan - norco prn pain - encourage PO hydration - strict I/Os - diet per gen surg - possible discharge home today ALFREDO CORRAL MD Jun 18, 2019 08:11
[2019-06-18] MEDS: SENOKOT S TAB PO SCH (08:47)
[2019-06-18] MEDS: PANTOPRAZOLE 40MG TAB (PROTONIX) PO SCH (08:47)
[2019-06-18] MEDS: ENOXAPARIN 40 MG/0.4 ML SYRINGE (J1650) SC SCH (08:47)
[2019-06-18] MEDS ORDERED: HYDR-3715 PO (09:07)
--- NOTE | 2019-06-18 18:08 | DSES ---
DATE OF ADMISSION: 06/15/2019 DATE OF DISCHARGE: 06/18/2019 ADMISSION DIAGNOSIS: Left colon cancer and right renal cancer. POSTOPERATIVE DIAGNOSIS: Left colon cancer and right renal cancer. HOSPITAL COURSE: Patient is a 58-year-old male who presented on June 15 for elective robotic right nephrectomy and low anterior resection. Postoperative day #1 he was doing well. Stover catheter was removed. He was tolerating a clear liquid diet. No nausea or vomiting. Pain was controlled. He was up out of the bed ambulating without any difficulty. Labs were stable his entire admission. Never had any leukocytosis. His creatinines had remained stable. Urine output was stable. He was slowly advanced on his diet over the next 48 hours. Drain in the pelvis remained clear his entire postoperative stay. No signs of any anastomosis leak. Today, June 18, he is tolerating a regular diet, having bowel movements. Feels well, and plan is to discharge home today. He will followup with Dr. Valle. Followup with myself in 2 weeks. He can shower. No lifting more than 20 pounds for 2 weeks. No baths for 5 days. All of his questions are answered, and he will followup with us with any problems.
== END 2019-06-18 14:00 | disposition home or self-care (01) | DRG 221 ==
LOC: M OR 06:01 → M MSPAV 15:50
PROVIDERS: ADMIT Surgery; ATTEND Surgery
PROC: 0DBN4ZZ Excision of Sigmoid Colon, Percutaneous Endoscopic Approach (ICD-10-PCS; 2019-06-15)
PROC: 8E0W4CZ Robotic Assisted Procedure of Trunk Region, Percutaneous Endoscopic Approach (ICD-10-PCS; 2019-06-15)
PROC: 0TT04ZZ Resection of Right Kidney, Percutaneous Endoscopic Approach (ICD-10-PCS; principal; 2019-06-15 07:30)
PROC: 0DBP4ZZ Excision of Rectum, Percutaneous Endoscopic Approach (ICD-10-PCS; 2019-06-15 07:30)
DX: C19 Malignant neoplasm of rectosigmoid junction (principal); C64.1 Malignant neoplasm of right kidney, except renal pelvis; Z88.0 Allergy status to penicillin; Z88.2 Allergy status to sulfonamides; Z79.899 Other long term (current) drug therapy; Z79.1 Long term (current) use of non-steroidal anti-inflammatories (NSAID)

== ENCOUNTER → 2019-06-25 | Outpatient (CLI) | payer OTHER ==
[~2019-06-25] MED LIST changes: -ERTAPENEM SODIUM 1 GM in NS MINI-BAG PLUS 50 ML IV ONE; +HYDR-3715 PO; -LR 1,000 ML IV ONE
[2019-06-25 09:54] LABS: HEMATOCRIT 44.4 % (42.0-52.0); HEMOGLOBIN 14.9 g/dl (13.5-17.5); MEAN CORPUSCULAR HEMOGLOBIN 29.6 pg (27.0-33.0); MEAN CORPUSCULAR HGB CONC 33.6 g/dl (32.0-36.5); MEAN CORPUSCULAR VOLUME 88.3 fl (80.0-96.0); PLATELET COUNT, AUTOMATED 346 10^3/uL (150-450); RED BLOOD COUNT 5.03 10^6/uL (4.30-6.10); WHITE BLOOD COUNT 8.9 10^3/uL (4.0-10.0)
[2019-06-25 10:38] LABS: ALBUMIN 3.6 GM/DL (3.2-5.2); ALT/SGPT 56 U/L (12-78); BILIRUBIN,TOTAL 0.5 MG/DL (0.2-1.0); BLOOD UREA NITROGEN 18 MG/DL (7-18); CALCIUM LEVEL 9.1 MG/DL (8.5-10.1); CARBON DIOXIDE LEVEL 32 MEQ/L (21-32); CHLORIDE LEVEL 104 MEQ/L (98-107); GLOMERULAR FILTRATION RATE > 60.0 (>56); GLUCOSE, FASTING 110 MG/DL (70-100); POTASSIUM SERUM 4.9 MEQ/L (3.5-5.1); SODIUM LEVEL 140 MEQ/L (136-145); TOTAL PROTEIN 7.3 GM/DL (6.4-8.2)
== END ==
LOC: M LAB 09:25
PROVIDERS: ATTEND Urology
DX: C64.1 Malignant neoplasm of right kidney, except renal pelvis (principal); Z90.5 Acquired absence of kidney

== ENCOUNTER → 2019-07-14 | Outpatient (CLI) | payer OTHER ==
--- NOTE | 2019-07-14 13:26 | REP ---
PET/CT: HISTORY: Staging colorectal carcinoma. Rectosigmoid colon. Status post rectosigmoid colon resection. History of renal cell carcinoma status post right nephrectomy. COMPARISONS: Comparison CT study abdomen and pelvis May 21, 2019. TECHNIQUE: 46 minutes following the intravenous injection of a 8.56 mCi dose of F-18 FDG, three-dimensional PET scintigraphy is acquired from the skull base to the proximal thighs. Triplanar noncontrast CT scanning is acquired through the same anatomic range for attenuation correction, and image registration with scan parameters optimized to minimize radiation exposure to the patient. PET scintigraphy and CT datasets were fused and displayed on a workstation with multiplanar and projection display capability. PET/CT FINDINGS: Head and neck soft tissues are unremarkable. There is no abnormal hypermetabolic uptake within the thorax. No abnormal pulmonary parenchymal opacity. In the abdomen and pelvis, there is normal hepatic, splenic, genitourinary and gastrointestinal uptake. The patient is status post right nephrectomy. Minimal postoperative non-hypermetabolic uptake is seen in the nephrectomy bed adjacent to the inferior vena cava. There is mild postoperative uptake in the anterior abdominal wall at the periumbilical region. Maximum standard uptake value 3.76. There is mild uptake at the rectosigmoid colonic anastomosis, maximum standard uptake value 9.19. There is no hypermetabolic pelvic lymphadenopathy visible. No other hypermetabolic uptake is seen in the abdomen or pelvis. IMPRESSION: Postoperative hypermetabolic uptake seen in the periumbilical region of the anterior abdominal wall and at the colocolonic anastomosis in the pelvis. The patient is status post right nephrectomy as well as left colectomy. No evidence of metastatic adenopathy seen. No liver lesion. Electronically Signed by Issac Velazquez MD 07/14/2019 01:29 P
== END ==
LOC: M PLARAD 08:41
PROVIDERS: ATTEND Internal Medicine Hematology
DX: C18.7 Malignant neoplasm of sigmoid colon (principal); Z98.1 Arthrodesis status; Z90.5 Acquired absence of kidney; Z90.49 Acquired absence of other specified parts of digestive tract
CPT/HCPCS: 78815; A9552

== ENCOUNTER → 2019-07-22 | Outpatient (CLI) | payer OTHER ==
[~2019-07-22] MED LIST changes: +LIDOCAINE 1% MDV 20ML VIAL As Ordered ONE; +MIDAZOLAM INJ 2 MG/2 ML VIAL (J2250) As Ordered ONE; +VANCOMYCIN HCL 500 MG/10 ML VIAL (J3370) As Ordered ONE; +diphenhydrAMINE INJ 50MG/ML VIAL (J1200) As Ordered ONE; +fentaNYL 100 MCG/2 ML INJECTION (J3010) As Ordered ONE
--- NOTE | 2019-07-22 12:26 | IRHP ---
[facility] IR Pre-Procedure H & P General Date of Service: Jul 22, 2019 Procedure: Same Day Surgery Interval History and Physical I have seen the patient and reviewed last H & P performed within 30 days. There is no significant interval change. History of Present Illness Chief Complaint The patient is a 58-year-old male admitted with a reason for visit of Kidney Ca. PRE-PROCEDURE DIAGNOSIS: kidney ca HEART: normal rate. LUNGS: normal breathing at rest. ASA Classification ASA Classification: II-Mild systemic disease Mallampati Score: II NPO: Yes Problems with prior sedation: No Obstructive Sleep Apnea: No Plan moderate sedation Allergies Coded Allergies: Penicillins (Verified Allergy, Unknown, RXN A CHILD - UNKNOWN, 06/15/19) as child unaware of reaction type Sulfa (Sulfonamide Antibiotics) (Verified Allergy, Unknown, 06/15/19) as child, unaware of reaction type VS, I&O, 24H, Fishbone Vital Signs/I&O Vital Signs Date Time Temp Pulse Resp B/P (MAP) Pulse Ox O2 Delivery O2 Flow Rate FiO2 07/22/19 11:37 98 82 16 96 Room Air MARIA DEL CARMEN THOMPSON MD Jul 22, 2019 12:26
--- NOTE | 2019-07-22 13:21 | POST-OPPD ---
Postoperative Procedure Note Date Of Procedure: Jul 22, 2019 Time Of Procedure: 13:18 PREOPERATIVE DIAGNOSIS: kidney ca POSTOPERATIVE DIAGNOSIS: same FINDINGS: patent right IJ PROCEDURE: right side port SURGEON: park ANESTHESIA: mod sed ESTIMATED BLOOD LOSS: < 5 ml COMPLICATIONS: none POSTOPERATIVE CONDITION: stable MARIA DEL CARMEN THOMPSON MD Jul 22, 2019 13:21
[2019-07-22 13:45] VITALS: BP 143/89
--- NOTE | 2019-07-22 14:24 | REP ---
IR Ultrasound and fluoroscopy-guided port placement. IR Ultrasound of the neck. IR Moderate sedation. Clinical information: Kidney cancer. Physician: Dr. Ferreira. Procedure: The patient was advised of the benefits, risks, and alternatives of the procedure and informed consent was obtained. A time-out was performed with verification of the patient's name, MRN, site of procedure and type of procedure to be performed. The patient was positioned in the supine position on the angiographic table. The site was prepped and draped in the usual sterile fashion. Moderate sedation was performed by the physician including the presence of an independent trained observer who assisted and monitored the patient's level of consciousness and physiologic status. Following the administration of fentanyl and Versed, the physician spent 45 minutes of continuous face to face time with the patient. Ultrasound of the neck reveals a patent and compressible right internal jugular vein. A chiropractic assistant radiograph reveals no gross abnormality. The neck and anterior chest wall were anesthetized with lidocaine. The right internal jugular vein was accessed using a microintroducer needle under ultrasound guidance, via a lateral approach. An 018 wire was advanced into the superior vena cava, the needle was removed and a microsheath was placed. An Amplatz wire was then passed into the inferior vena cava. An incision at the internal jugular vein access site and anterior chest wall were made using a scalpel. An incision was made at the anterior chest wall. A small pocket was created using a combination of blunt and sharp dissection. A tunneling device was then used to pass the catheter from the pocket to the neck puncture site. An 8-[place] Angio dynamics Smart power port was then positioned in the pocket. The catheter was then measured and cut. The introducer sheath was exchanged for a peel-away sheath. The catheter was passed through the peel-away sheath into the internal jugular vein and the peel-away sheath was removed. The port tip was positioned at the cavoatrial junction. The port was then accessed with a Mesa needle. The port flushes and aspirates well. The puncture site in the neck was closed. The chest wall incision was then closed with 2-0 Vicryl and 4-0 Monocryl. Glue and Steri-Strips were applied. A sterile dressing was then applied. The patient tolerated the procedure well and was returned to the PRU in stable condition. Estimated blood loss: <5 ml. Complications: None. Conclusion: 1. Successful placement of an 8-[place] Angio dynamics Smart power port via the right internal jugular vein. The port is ready for immediate use. 2. Patient to follow up in IR clinic in 2 weeks. Thank you for this referral. Electronically Signed by Josefa Ferreira MD 07/22/2019 02:23 P
== END ==
LOC: M IRPRO 11:07
PROVIDERS: ATTEND Radiology Diagnostic Radiology
DX: C64.9 Malignant neoplasm of unspecified kidney, except renal pelvis (principal); Z88.0 Allergy status to penicillin; Z88.2 Allergy status to sulfonamides

== ENCOUNTER → 2019-08-11 | Outpatient (POV) | payer OTHER ==
[~2019-08-11] MED LIST changes: +ACET-683 PO; +CHLOR25TA PO; -LIDOCAINE 1% MDV 20ML VIAL As Ordered ONE; +LINE1TAB6 PO; -MIDAZOLAM INJ 2 MG/2 ML VIAL (J2250) As Ordered ONE; -VANCOMYCIN HCL 500 MG/10 ML VIAL (J3370) As Ordered ONE; +ZYVO1TAB PO; -diphenhydrAMINE INJ 50MG/ML VIAL (J1200) As Ordered ONE; -fentaNYL 100 MCG/2 ML INJECTION (J3010) As Ordered ONE
--- NOTE | 2019-08-12 09:23 | IRPN ---
[facility] IR Progress Note IR Progress Note DATE: Aug 11, 2019 Tele follow up FOLLOW-UP: status post port placement, patient doing well. No pain, fever or discomfort. Port being used without issues. ON EXAMINATION: Video conference available and demonstrates port site looks good. No redness dehiscence or discharge. One steri strip left at venotomy; will fall off by itself. IMPRESSION: Doing well status post port placement. No further follow up needed unless scheduled by patient and or referring provider. Thank you for this referral Allergies Coded Allergies: Penicillins (Verified Allergy, Unknown, RXN A CHILD - UNKNOWN, 06/15/19) as child unaware of reaction type Sulfa (Sulfonamide Antibiotics) (Verified Allergy, Unknown, 06/15/19) as child, unaware of reaction type MARIA DEL CARMEN THOMPSON MD Aug 12, 2019 09:23
== END ==
LOC: M IRPOV 08:29
PROVIDERS: ATTEND Radiology Diagnostic Radiology
DX: Z45.2 Encounter for adjustment and management of vascular access device (principal)

== ENCOUNTER 2019-08-13 08:45 | Emergency (ER) | payer OTHER ==
[~2019-08-13] VITALS: Ht 177.8 cm; Wt 87.6 kg
[~2019-08-13 08:45] MED LIST changes: -ACET-683 PO; -LINE1TAB6 PO; -ZYVO1TAB PO
[2019-08-13] MEDS ORDERED: ACET-683 PO (08:56)
[2019-08-13 09:52] LABS: AMORPHOUS SEDIMENT SMALL (NEGATIVE); APPEARANCE, URINE CLEAR (CLEAR); BACTERIA, URINE AUTO NEGATIVE (NEGATIVE); BILIRUBIN, URINE AUTO NEGATIVE (NEGATIVE); BLOOD, URINE BLOOD 1+ (NEGATIVE); COLOR, URINE STRAW (YELLOW); GLUCOSE, URINE (UA) AUTO 2+ mg/dL (NEGATIVE); KETONE, URINE AUTO NEGATIVE (NEGATIVE); LEUKOCYTE ESTERASE, URINE AUTO NEGATIVE (NEGATIVE); NITRITE, URINE AUTO NEGATIVE (NEGATIVE); PROTEIN, URINE AUTO NEGATIVE (NEGATIVE); RBC, URINE AUTO 6 /HPF (0-3); SPECIFIC GRAVITY URINE AUTO 1.006 (1.002-1.035); SQUAMOUS EPITHELIAL CELL UR AU 0 /HPF (0-6); UROBILINOGEN, URINE AUTO 0.2 mg/dL (0.0-2.0); WBC, URINE AUTO 0 /HPF (0-3)
--- NOTE | 2019-08-13 09:52 | REP ---
REASON FOR EXAM: Pyrexia. COMPARISON: Frontal view of the chest obtained as part of a rib series on 09/16/2006. The technique utilized in obtaining the radiograph has magnified the cardiac silhouette and accentuated the interstitial markings. In the right lower lobe, there is a 1 cm sized nodule representing a change from the prior exam. Since the last examination, a right-sided mediport device has been placed and the tip of which is in the superior vena cava. The heart is not enlarged. The pleural angles are sharp. The lung caldwell are otherwise clear. The osseous structures are within normal limits. IMPRESSION: 1. There is a small nodule in the right lung lower lobe as described above. Since prior PET/CT of 07/14/2019, which was obtained for colorectal cancer staging, showed no abnormal intrathoracic hypermetabolic activity, the finding on the chest radiograph today is consistent with a benign process, possibly even the patient's nipple shadow. 2. No evidence of acute cardiopulmonary disease. No significant change in the appearance of the lung caldwell otherwise in the aforementioned. Electronically Signed by Sergio Taylor DO 08/13/2019 10:50 A
[2019-08-13 09:59] LABS: BASO % 0.2 % (0.0-1.0); EOS # 0.1 10^3/uL (0.0-0.5); EOS % 0.6 % (0.0-3.0); HEMATOCRIT 41.6 % (42.0-52.0); HEMOGLOBIN 14.5 g/dl (13.5-17.5); LYMPH # 0.1 10^3/uL (1.5-5.0); LYMPH % 0.7 % (24.0-44.0); MEAN CORPUSCULAR HEMOGLOBIN 29.4 pg (27.0-33.0); MEAN CORPUSCULAR HGB CONC 34.9 g/dl (32.0-36.5); MEAN CORPUSCULAR VOLUME 84.2 fl (80.0-96.0); MONO # 0.9 10^3/uL (0.0-0.8); MONO % 7.7 % (0.0-5.0); NEUTROPHILS # 10.5 10^3/uL (1.5-8.5); NEUTROPHILS % 90.1 % (36.0-66.0); PLATELET COUNT, AUTOMATED 139 10^3/uL (150-450); RED BLOOD COUNT 4.94 10^6/uL (4.30-6.10); WHITE BLOOD COUNT 11.6 10^3/uL (4.0-10.0)
[2019-08-13] MEDS ORDERED: SODIUM CHLORIDE 0.9% INJ 10 ML SYR IV PRN (10:15)
[2019-08-13 10:35] LABS: CALCIUM LEVEL 8.4 MG/DL (8.5-10.1); CREATININE FOR GFR 1.44 MG/DL (0.70-1.30); GLOMERULAR FILTRATION RATE 53.6 (>56); POTASSIUM SERUM 4.3 MEQ/L (3.5-5.1)
[2019-08-13] MEDS ORDERED: LINEZOLID 600MG TABLET (ZYVOX) PO ONE (12:00)
[2019-08-13] MEDS ORDERED: ZYVO1TAB PO (12:12)
[2019-08-13 12:18] VITALS: BP 138/89
[2019-08-13] MEDS ORDERED: LINE1TAB6 PO (13:27)
--- NOTE | 2019-08-14 13:29 | ED PDOC ---
Post-Departure Follow-Up deion wilkins faxed formal report of cxr for fu davieg Tri Becerra MD Aug 14, 2019 13:29
== END 2019-08-13 12:34 | disposition home or self-care (01) ==
LOC: M ED 08:45
DX: R50.9 Fever, unspecified (principal); D84.9 Immunodeficiency, unspecified; C18.9 Malignant neoplasm of colon, unspecified; Z79.899 Other long term (current) drug therapy; Z88.0 Allergy status to penicillin; Z88.2 Allergy status to sulfonamides
CPT/HCPCS: 36415; 71045; 80048; 81001; 85025; 87040; 87086; 87486; 87581; 87633; 87798; 93041; 94760; 96374; 96375; 99285; J1642; U0002

== ENCOUNTER → 2019-10-29 | Outpatient (CLI) | payer OTHER ==
[~2019-10-29] MED LIST changes: +ACET-683 PO; +D 1010004 PO; +GASTROGRAFIN SOLUTION 30ML (Q9963) As Ordered ONE; +ISOVUE-370 76% 100ML VIAL As Ordered ONE; +LINE1TAB6 PO; +MULTCAP PO; +ZYVO1TAB PO
--- NOTE | 2019-10-29 11:07 | REP ---
REASON: History of colon cancer. There are no prior chest CTs for comparison. CONTRAST: 100 mL Isovue 370. There is no mediastinal or hilar adenopathy. There are no pleural or pericardial effusions. For a description of the imaged upper abdomen, see CT abdomen and pelvis report made the same day. The imaged osseous structures are within normal limits for the patient's age. There is a Mediport device in place the tip of which is in the superior vena cava. Evaluation of the lung caldwell shows a tiny 4 mm sized nodule in the posterior segment of the right upper lobe abutting the major fissure. The lung caldwell are otherwise clear. IMPRESSION: There is a 4 mm sized nodule in the right upper lobe as described above. According to the revised Fleischner Society criteria, this represents a category 3 lesion for which 3-month followup CT is recommended. Electronically Signed by Sergio Taylor DO 10/29/2019 04:55 P
--- NOTE | 2019-10-29 11:31 | REP ---
REASON: History of right renal carcinoma and colon carcinoma. COMPARISON: 05/21/2019 Since the last examination, the patient has undergone right nephrectomy. CONTRAST: 100 mL Isovue 370. The liver, gallbladder, spleen, pancreas, adrenal glands, and left kidney are unchanged. Two tiny simple hepatic cysts are noted status quo. The abdominal aorta is within normal limits. Once again, there are small para-aortic lymph nodes status quo. Bowel now occupies the right renal fossa secondary to nephrectomy. The bowel loops and their mesenteries are within normal limits. There is no free fluid or free air. There is no intra-abdominal mass or adenopathy. CT PELVIS: Postoperative changes are seen in the sigmoid colon status quo. There is no mass or adenopathy. There is no free fluid or free air. Bone window technique throughout the exam shows chronic degenerative changes in the spine status quo. IMPRESSION: 1. Status post right nephrectomy. 2. No evidence of acute intra-abdominal or intrapelvic disease. Findings as described above. Electronically Signed by Sergio Taylor DO 10/29/2019 04:55 P
== END ==
LOC: M RAD 07:00
PROVIDERS: ATTEND Internal Medicine Hematology & Oncology
DX: C19 Malignant neoplasm of rectosigmoid junction (principal)
CPT/HCPCS: 71260; 74177; Q9963; Q9967

== ENCOUNTER → 2020-02-01 | Outpatient (CLI) | payer OTHER ==
[~2020-02-01] MED LIST changes: -GASTROGRAFIN SOLUTION 30ML (Q9963) As Ordered ONE
--- NOTE | 2020-02-04 09:40 | REP ---
CONTRAST ENHANCED CHEST CT USING 75 ML ISOVUE-370 CONTRAST MATERIAL CLINICAL: History of colon cancer. TECHNIQUE: Axial contrast enhanced images from the thoracic inlet to the upper abdomen with coronal and sagittal reformations using 75 mL Isovue-370 intravenous contrast material. FINDINGS: Bilateral lung caldwell are well-aerated and clear. No consolidation, pleural effusion, or pneumothorax. No significant nodule or mass lesion appreciated. Tracheobronchial tree is patent. No axillary, hilar, or mediastinal adenopathy noted. Atherosclerotic changes to the coronary arteries noted without cardiomegaly or pericardial effusion. Thoracic aorta and pulmonary vasculature appear normal. Infusaport identified within the anterior right chest wall and catheter extending into the superior vena cava (SVC). Surrounding musculoskeletal structures are intact and without acute osseous abnormality. Limited upper abdomen demonstrates normal bilateral adrenal glands and evidence for prior right nephrectomy. IMPRESSION: No acute mediastinal or pleural parenchymal process appreciated. No evidence for metastatic disease. MTDD
== END ==
LOC: M RAD 09:51
PROVIDERS: ATTEND Internal Medicine Hematology & Oncology
DX: Z85.038 Personal history of other malignant neoplasm of large intestine (principal)
CPT/HCPCS: 71260; Q9967

== ENCOUNTER → 2020-06-09 | Outpatient (CLI) | payer OTHER ==
[~2020-06-09] MED LIST changes: -ISOVUE-370 76% 100ML VIAL As Ordered ONE; +VITMTA PO
== END ==
LOC: M LABSMTC 11:04
PROVIDERS: ATTEND Anesthesiology
DX: Z01.812 Encounter for preprocedural laboratory examination (principal); Z20.822 Contact with and (suspected) exposure to COVID-19

== ENCOUNTER 2020-06-14 12:03 | Day surgery (SDC) | payer OTHER ==
[~2020-06-14] VITALS: Ht 180.3 cm; Wt 81.6 kg
[~2020-06-14 12:03] MED LIST changes: +NS 1,000 ML IV ONE
--- OUTSIDE RECORDS SUMMARY | 2020-06-14 12:12 | CCD ---
Author Author [facility] Organization [facility] Address Unknown Phone Unavailable Care Team Providers Care Collector Of [employer] Name Role Phone WES BURDICK Unavailable Unavailable GAMA VIRGEN MD Unavailable Unavailable GAMA VIRGEN MD Unavailable Unavailable GAMA VIRGEN MD Unavailable Unavailable GAMA VIRGEN MD Unavailable Unavailable GAMA VIRGEN MD Unavailable Unavailable GAMA VIRGEN MD Unavailable Unavailable GAMA VIRGEN MD Unavailable Unavailable GAMA VIRGEN MD Unavailable Unavailable GAMA VIRGEN MD Unavailable Unavailable GAMA VIRGEN MD Unavailable Unavailable GAMA VIRGEN MD Unavailable Unavailable GAMA VIRGEN MD Unavailable Unavailable GAMA VIRGEN MD Unavailable Unavailable GAMA VIRGEN MD Unavailable Unavailable GAMA VIRGEN MD Unavailable Unavailable GAMA VIRGEN MD Unavailable Unavailable GAMA VIRGEN MD Unavailable Unavailable GAMA VIRGEN MD Unavailable Unavailable GAMA VIRGEN MD Unavailable Unavailable GAMA VIRGEN MD Unavailable Unavailable GAMA VIRGEN MD Unavailable Unavailable GAMA VIRGEN MD Unavailable Unavailable GAMA VIRGEN MD Unavailable Unavailable GAMA VIRGEN MD Unavailable Unavailable GAMA VIRGEN MD Unavailable Unavailable GAMA VIRGEN MD Unavailable Unavailable GAMA VIRGEN MD Unavailable Unavailable REINDL, GAMA GRULLON Unavailable Unavailable REINDL, GAMA GRULLON Unavailable Unavailable REINDL, GAMA GRULLON Unavailable Unavailable REINDL, GAMA GRULLON Unavailable Unavailable REINDL, GAMA GRULLON Unavailable Unavailable REINDL, GAMA GRULLON Unavailable Unavailable REINDL, GAMA GRULLON Unavailable Unavailable REINDL, GAMA GRULLON Unavailable Unavailable REINDL, GAMA GRULLON Unavailable Unavailable REINDL, GAMA GRULLON Unavailable Unavailable REINDL, GAMA GRULLON Unavailable Unavailable REINDL, GAMA GRULLON Unavailable Unavailable REINDL, GAMA GRULLON Unavailable Unavailable REINDL, GAMA GRULLON Unavailable Unavailable REINDL, GAMA GRULLON Unavailable Unavailable REINDL, GAMA GRULLON Unavailable Unavailable REINDL, GAMA GRULLON Unavailable Unavailable BRYDEN, A MARGY DO Unavailable Unavailable BRYDEN, A MARGY DO Unavailable Unavailable BRYDEN, A MARGY DO Unavailable Unavailable BRYDEN, A MARGY DO Unavailable Unavailable BRYDEN, A MARGY DO Unavailable Unavailable BRYDEN, A MARGY DO Unavailable Unavailable BRYDEN, A MARGY DO Unavailable Unavailable BRYDEN, A MARGY DO Unavailable Unavailable BRYDEN, A MARGY DO Unavailable Unavailable BRYDEN, A MARGY DO Unavailable Unavailable BRYDEN, A MARGY DO Unavailable Unavailable BRYDEN, A MARGY DO Unavailable Unavailable BRYDEN, A MARGY DO Unavailable Unavailable BRYDEN, A MARGY DO Unavailable Unavailable BRYDEN, A MARGY DO Unavailable Unavailable BRYDEN, A MARGY DO Unavailable Unavailable BRYDEN, A MARGY DO Unavailable Unavailable BRYDEN, A MARGY DO Unavailable Unavailable BRYDEN, A MARGY DO Unavailable Unavailable BRYDEN, A MARGY DO Unavailable Unavailable BRYDEN, A MARGY DO Unavailable Unavailable BRYDEN, A MARGY DO Unavailable Unavailable BRYDEN, A MARGY DO Unavailable Unavailable BRYDEN, A MARGY DO Unavailable Unavailable BRYDEN, A MARGY DO Unavailable Unavailable BRYDEN, A MARGY DO Unavailable Unavailable BRYDEN, A MARGY DO Unavailable Unavailable BRYDEN, A MARGY DO Unavailable Unavailable LARIOS, RINKI Unavailable Unavailable LARIOS, RINKI Unavailable Unavailable LARIOS, RINKI Unavailable Unavailable LARIOS, RINKI Unavailable Unavailable LARIOS, RINKI Unavailable Unavailable LARIOS, RINKI Unavailable Unavailable LARIOS, RINKI Unavailable Unavailable LARIOS, RINKI Unavailable Unavailable LARIOS, RINKI Unavailable Unavailable LARIOS, RINKI Unavailable Unavailable LARIOS, RINKI Unavailable Unavailable LARIOS, RINKI Unavailable Unavailable LARIOS, RINKI Unavailable Unavailable LARIOS, RINKI Unavailable Unavailable LARIOS, RINKI Unavailable Unavailable LARIOS, RINKI Unavailable Unavailable LARIOS, RINKI Unavailable Unavailable LARIOS, RINKI Unavailable Unavailable LARIOS, RINKI Unavailable Unavailable LARIOS, RINKI Unavailable Unavailable LARIOS, RINKI Unavailable Unavailable LARIOS, RINKI Unavailable Unavailable LARIOS, RINKI Unavailable Unavailable LARIOS, RINKI Unavailable Unavailable LARIOS, RINKI Unavailable Unavailable LARIOS, RINKI Unavailable Unavailable LARIOS, RINKI Unavailable Unavailable LARIOS, RINKI Unavailable Unavailable LARIOS, RINKI Unavailable Unavailable LARIOS, RINKI Unavailable Unavailable LARIOS, RINKI Unavailable Unavailable LARIOS, RINKI Unavailable Unavailable LARIOS, RINKI Unavailable Unavailable LARIOS, RINKI Unavailable Unavailable LARIOS, RINKI Unavailable Unavailable LARIOS, RINKI Unavailable Unavailable LARIOS, RINKI Unavailable Unavailable LARIOS, RINKI Unavailable Unavailable LARIOS, RINKI Unavailable Unavailable LARIOS, RINKI Unavailable Unavailable LARIOS, RINKI Unavailable Unavailable LARIOS, RINKI Unavailable Unavailable LARIOS, RINKI Unavailable Unavailable LARIOS, RINKI Unavailable Unavailable LARIOS, RINKI Unavailable Unavailable LARIOS, RINKI Unavailable Unavailable LARIOS, RINKI Unavailable Unavailable LARIOS, RINKI Unavailable Unavailable LARIOS, RINKI Unavailable Unavailable LARIOS, RINKI Unavailable Unavailable LARIOS, RINKI Unavailable Unavailable LARIOS, RINKI Unavailable Unavailable LARIOS, RINKI Unavailable Unavailable LARIOS, RINKI Unavailable Unavailable LARIOS, RINKI Unavailable Unavailable LARIOS, RINKI Unavailable Unavailable LARIOS, RINKI Unavailable Unavailable LARIOS, RINKI Unavailable Unavailable LARIOS, RINKI Unavailable Unavailable LARIOS, RINKI Unavailable Unavailable LARIOS, RINKI Unavailable Unavailable LARIOS, RINKI Unavailable Unavailable LARIOS, RINKI Unavailable Unavailable LARIOS, RINKI Unavailable Unavailable LARIOS, RINKI Unavailable Unavailable LARIOS, RINKI Unavailable Unavailable LARIOS, RINKI Unavailable Unavailable LARIOS, RINKI Unavailable Unavailable Re-disclosure Warning The records that you are about to access may contain information from federally-assisted alcohol or drug abuse programs. If such information is present, then the following federally mandated warning applies: This information has been disclosed to you from records protected by federal confidentiality rules (42 CFR part 2). The federal rules prohibit you from making any further disclosure of this information unless further disclosure is expressly permitted by the written consent of the person to whom it pertains or as otherwise permitted by 42 CFR part 2. A general authorization for the release of medical or other information is NOT sufficient for this purpose. The Federal rules restrict any use of the information to criminally investigate or prosecute any alcohol or drug abuse patient.The records that you are about to access may contain highly sensitive health information, the redisclosure of which is protected by Article 27-F of the [facility] Public Health law. If you continue you may have access to information: Regarding HIV / AIDS; Provided by facilities licensed or operated by the [facility] Office of Mental Health; or Provided by the [facility] Office for People With Developmental Disabilities. If such information is present, then the following [facility] mandated warning applies: This information has been disclosed to you from confidential records which are protected by state law. State law prohibits you from making any further disclosure of this information without the specific written consent of the person to whom it pertains, or as otherwise permitted by law. Any unauthorized further disclosure in violation of state law may result in a fine or residential sentence or both. A general authorization for the release of medical or other information is NOT sufficient authorization for further disc losure. Allergies and Adverse Reactions Type Description Substance Reaction Status Data Source(s ) Drug Class SULFA ANTIBIOTICS SULFA ANTIBIOTICS [facility] DRUG INGREDI PENICILLIN G PENICILLIN G [facility] Drug allergy Penicillin (For Allergies Use Only) Drug allergy doesn 't know Active eCW1 ([facility]) Seasonal Seasonal Seasonal itchy eyes, watery eyes Active eCW1 ([facility]) Sulfa (for allergy use only) Sulfa (for allergy use only) Carlos lfa (for allergy use only) doesn't know Active eCW1 ([facility]) Seasonal Seasonal Seasonal itchy eyes, watery eyes Active eCW1 ([facility]) Sulfa (for allergy use only) Sulfa (for allergy use only) Carlos lfa (for allergy use only) doesn't know Active eCW1 ([facility]) Seasonal Seasonal Seasonal itchy eyes, watery eyes Active eCW1 ([facility]) Sulfa (for allergy use only) Sulfa (for allergy use only) Carlos lfa (for allergy use only) doesn't know Active eCW1 ([facility]) Seasonal Seasonal Seasonal itchy eyes, watery eyes Active eCW1 ([facility]) Sulfa (for allergy use only) Sulfa (for allergy use only) Carlos lfa (for allergy use only) doesn't know Active eCW1 ([facility]) Seasonal Seasonal Seasonal itchy eyes, watery eyes Active eCW1 ([facility]) Sulfa (for allergy use only) Sulfa (for allergy use only) Carlos lfa (for allergy use only) doesn't know Active eCW1 ([facility]) Encounters Encounter Providers Location Date Indications Data Source(s ) Outpatient Attender: GAMA Villarreal/Staci/Burt/Bora guerrero 06/01/2020 09:15:00 AM EST [facility] ([facility] Outpatient [address] [facility] [phone] 01/25/2020 12:00:00 AM EDT eCW1 (Replaced by [facility]) Outpatient Attender: JOSE CARLOS Cyrender: WES NewsomeA-ONCCACTR 11/12/2019 12:00:00 AM EDT - 11/12/2019 12:29:51 PM [facility] Outpatient 08/25/2019 05:41:00 AM EDT [facility] [place] [address] [place] [phone] 08/14/2019 12:00:00 AM EDT eCW1 (Replaced by [facility]) Outpatient 08/07/2019 05:13:00 AM EDT [facility] Outpatient [address] [place] [address] Y [phone] 07/24/2019 12:00:00 AM EDT eCW1 (Replaced by [facility]) [facility] [address] [place] [phone] 07/03/2019 12:00:00 AM EDT eCW1 (Replaced by [facility]) [facility] [address] [place] [phone] 06/26/2019 12:00:00 AM EST eCW1 (Replaced by [facility]) [facility] [address] [place] [phone] 06/23/2019 12:00:00 AM EST eCW1 (Replaced by [facility]) [facility] [address] [place] [address], [place] [phone] 06/23/2019 12:00:00 AM EST eCW1 (Replaced by [facility]) [facility] [address] [facility] [address] 06/09/2019 12:00:00 AM EST eCW1 (Replaced by [facility]) [facility] [address] [place] [address], [place] [phone] 06/03/2019 12:00:00 AM EST eCW1 (Replaced by [facility]) [facility] [address] [place] [address], [place] [address] 06/01/2019 12:00:00 AM EST eCW1 (Replaced by [facility]) Outpatient 05/31/2019 08:27:00 PM EST [facility] [address] [place] [address], [place] [phone] 05/28/2019 12:00:00 AM EST eCW1 (Replaced by [facility]) Outpatient Attender: MARGY Francisco/Staci/Burt/Wilton martinez 05/26/2019 10:00:00 AM EST [facility] ([facility] Outpatient Attender: GAMA Villarreal/Miko/Bora guerrero 05/13/2019 09:30:00 AM EST [facility] ([facility] [address] [place] [address], [place] [address] 05/13/2019 12:00:00 AM EST eCW1 (Replaced by [facility]) [facility] [address] [place] [address], [place] [address] 05/12/2019 12:00:00 AM EST eCW1 (Replaced by [facility]) [facility] [address] [place] [address], [place] [phone] 05/04/2019 12:00:00 AM EST eCW1 (Replaced by [facility]) Medications Medication Brand Name Start Date Product Form Dose Route Admi nistrative Instructions Pharmacy Instructions Status Indications Reaction Description Data Source(s) Magnesium Hydroxide 80 MG/ML Oral Suspension Milk Of Magnesi a 06/01/2020 12:00:00 AM EST ORAL active M [facility] ([facility], ) Suprep Bowel Prep Kit Suprep Bowel Prep Kit 06/01/2020 12:00:00 AM EST active [facility] ([facility], ) No Active Medications 06/25/2019 12:00:00 AM EST active [facility] ([facility], ) 5-325 mg 06/18/2019 12:00:00 AM EST tablet 20 TAKE 1 TABLET BY MOUTH EVERY 6 HOURS NEEDED FOR MILD/MODERATE PAIN (PS 1-7) MAXIMUM DAILY DOSE = 4 TABLETS TAKE 1 TABLET BY MOUTH EVERY 6 HOURS NEEDED FOR MILD/MODERATE PAIN (PS 1-7) MAXIMUM DAILY DOSE = 4 TABLETS SOLD: 06/18/2019 [facility] 500 mg 06/09/2019 12:00:00 AM EST tablet 6 TAKE 2 TABLETS BY MOUTH AT 2:00PM AND 10:00PM DAY BEFORE SURGERY, 2 TABLETS AT 6:00AM MORNING OF SURGERY TAKE 2 TABLETS BY MOUTH AT 2:00PM AND 10:00PM DAY BEFORE SURGERY, 2 TABLETS AT 6:00AM MORNING OF SURGERY SOLD: 06/10/2019 [facility] 500 mg 06/09/2019 12:00:00 AM EST tablet 3 TAKE 1 TABLET BY MOUTH AT 2:00PM AND 10:00PM DAY BEFORE SURGERY, 1 TABLET AT 6:00AM MORNING OF SURGERY TAKE 1 TABLET BY MOUTH AT 2:00PM AND 10:00PM DAY BEFORE SURGERY, 1 TABLET AT 6:00AM MORNING OF SURGERY SOLD: 06/10/2019 [facility] Metronidazole 500 MG Oral Tablet [Flagyl] Flagyl 06/08/2019 12:00 :00 AM EST ORAL completed [facility] ([facility], ) Neomycin Sulfate 500 MG Oral Tablet Neomycin Sulfate 06/08/2019 12:00:00 AM EST ORAL completed [facility] ([facility], ) Magnesium Hydroxide 80 MG/ML Oral Suspension Milk Of Magnesi a 05/13/2019 12:00:00 AM EST ORAL completed [facility] ([facility], ) Suprep Bowel Prep Kit Suprep Bowel Prep Kit 05/13/2019 12:00:00 AM EST completed [facility] ([facility], ) Insurance Providers Payer name Policy type / Coverage type Policy ID Covered democrat ID Covered democrat's relationship to holt Policy Holt Plan Information CHUCK [id number] SP [id number] [place] [place] [id number] S [id number] CHUCK I [id number] Self [id number] AN[employer]mercial [id number] CHUCK [id number] SP [id number] [employer] [place] 302/307 [id number] SP [id number] [place] [place] 302/307 [id number] SP [id number] [place] [place] 302/307 [id number] SP [id number] [employer] [place] 302/307 [id number] SP [id number] [employer] 306/806 [id number] SP [id number] Problems, Conditions, and Diagnoses Code Display Name Description Problem Type Effective Dates Data Source(s) Z90.5 Absent kidney History of nephrectomy, unilateral Probl em 06/23/2019 12:00:00 AM EST eCW1 (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) Z90.5 Absent kidney History of nephrectomy, unilateral Probl em 06/23/2019 12:00:00 AM EST eCW1 (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) C18.9 [id number] Colon adenocarcinoma Problem 06/09/2019 12:0 0:00 AM EST eCW1 ([facility]) C18.9 [id number] Colon adenocarcinoma Problem 06/09/2019 12:0 0:00 AM EST eCW1 ([facility]) Z01.818 Pre-procedure evaluation check Preop testing Problem 06/01/2019 12:00:00 AM EST eCW1 ([facility]) Z01.818 Pre-procedure evaluation check Preop testing Problem 06/01/2019 12:00:00 AM EST eCW1 ([facility]) N28.89 Disorder of kidney and/or ureter Renal mass, right Pro blem 05/28/2019 12:00:00 AM EST eCW1 ([facility]) N28.89 Disorder of kidney and/or ureter Renal mass, right Pro blem 05/28/2019 12:00:00 AM EST eCW1 ([facility]) Surgeries/Procedures Procedure Description Date Indications Data Source(s) Laparoscopy Surgical Colectomy Partial W/Anastomosis W/Colop rocto 06/15/2019 12:00:00 AM EST [facility] ([facility]) Laparoscopy Surgical Colectomy Partial W/Anastomosis W/Colop rocto 06/15/2019 12:00:00 AM EST [facility] ([facility]) Colonoscopy Flexible Proximal To Splenic Flexure W/Biopsy Si ngle/ 05/15/2019 12:00:00 AM EST [facility] ([facility]) Colonoscopy,W/Directed Submucosal Injections, Any Substance 05/15/2019 12:00:00 AM EST [facility] ([facility]) Results ID Date Data Source [id number] 06/09/2020 11:00:00 AM EST [facility] Name Value Range Interpretation Code Description Data Melany rce(s) Supporting Document(s) SARS coronavirus 2 RNA Not Detected [facility] This lab was ordered by [facility] and reported by [facility]. ID Date Data Source [id number] 11/20/2019 10:49:23 PM EDT [facility] Name Value Range Interpretation Code Description Data Melany rce(s) Supporting Document(s) Progress Note [facility] OEZZUi6hAkPKFwDh23/VFGxjDNWpv8XdPRdpPVq8HUmwSLVxD5BcSYV3bV8uDAD4KXkRAwCdAnZjRmOu [facility] [file] svp digital ad sales+lYkXA8SXbSNrDyJfcy4pp3zww9M4ktKbiB/W5TN [file] Alv1otynhrYMYyuggynwGbTWF+PiANCj4+DQplbmRv ArcOStQ5IXOqo8IvDIs7JR2QAUWiEUuhUM9GAQHphI8oMNyvGL3LZyY1YWJjQSHUOsUaK84fySFrZSk8 Q1QrZnGtLRJfGkzxYDPiQKlrDuQpBHJyVtLeDEbcVK2+ID4+ICdiKO0KEIesjlGlPWQuCx2SSCApLQLh GH5iBPTvMWJtD3M7gZzpYFOPMhYyF2yguemeBL1gND MeE372aNbhsdYeODByIWGmYf6BLOUdDDN1FELesIOrRAMvZJRCDIvwOI3XrBBzNVI0fB6zEDqnRKAeNO GtJ2rGAaOziGnzYW39oJshytOimMGxFBd+Mo5KSA9ey4GrCAf0zpWcVRozPIQ9KVatENPkAUEySFRjQY J4ZPE7WEHODtXzNXIeIJFdNBwkXRIqVLLqit8UTCPb MNE2MSQ1LUQdLRUcLQHkLMntHBSyCHZwTSE8DXXtPBYqNP3ILjHmKGPpGGDhGMocDBNwUVIimp0LGAEc RPDuJKO4FlQgGKAmQEFkWUsjBZJlRUA0SuUmZZZuFUFlJB1IGxSvHWLpZFd6HWCdZITyCELghs5SBSNw KFRxUUw1ZXMyCYRoUCPqDPguNREgRRHxWDN0DCZhQT LhMG4CRnRkGXAhDvD8WNWsGMMkPTDrdw0KQUMvBMT3PnlwLJAgQIBxZYVbIGteMPCxUYT5YHhwVAVrQF WgRF5SMnRnHZWiGRo5ZncnHVNcLJDgdg0IVGUwTTGiNAe4PKMiNLTcNPYeILjsVZFnDAHoXJX5SMDdQJ JsZY4CIjXzRXDyOrFiCkQrGFVrIXDbfs2FXLDjYDHb EVsxMAXbWOYfLGUpZJzyYFOrCSB8UTYzKWMqWYGaRA1WOpCoKGQaBkM6IGMfSXMiWHSfbf8KPYRtZHOf IiP1SGFdIPWiDXPwUFnkHJEmGFL4AhvmNHIcLLGbNB1LLtEsGUJjWhmuPOVyMNZaOVTnks1ITDYoOYTz JqV5WgImGPMxJTVhMIskTMGlYRW5PtBjKYHfAJVlHY 4QCeVyRZYxFNQrYiDoBEUnGXDsza9KJFXhNKD9NbohZrLdTMZuOGCaVFbiIFBlEDVqZNXiLXMzAAXsOH 3MGaEhIORkDFM3RuOeJJPmBMYgpj1XWQMbOVM5KoX2OYByYVPsDSGcNPsnFPBuAUN1YzYiVOOiCOAyCJ 2RLnWgIAQrTED3OQAkFFKvYWSrsb4JHYEqJLH3VPv8 LYBfGCYgQCQeFZxdDHEfHGR1IGY2RRNuXVDmJU4QNpAcDYUeEvAvEBXpJLDzFYXroj0YGAQkQUF2RIP3 DyBoVGVjPIUeDSovDKWkDRZwRlE0KMZqFMXkCF9DQqKxUAScKnN9QTJnJVWzSTYmxy3BBZCwLDX9JXr5 MWQeDHDoXCBiZFqpHJEiLAHkKpS8SVTzGEBxYQ2WQr RcUKPxMjSnUeszZXOjFAGthc5UMIZlBKQ8GVreUdLuYUCgTDBeELfsHKStFWLwJgo3ACKvRYAjHJ8DTx PgFRChBnRsDEpwECLsVRBaev0UHRRbKSH6QypqNvOcYVGwAJMiUGu3szDgyTXpMPi9WK9ZA2RbvbHmYF QGIh8Ln024MQN6VLFoBr2MD4atGv8lWHKuUAIABd5Q DQu2UVO3CmUuOANnMAXzJHJ1PWC5FsZ4ReJ7B1Z0FPHaXEO+RAuqHnr9XHKcGXL3WMAnPXnxDCahCdrx LRl2BoK4W4JaLt6eDNLWVq1+UDuinNOsnBthEKKVOhR0HMsfSXdmXVRXJo9G ID Date Data Source [id number] 11/20/2019 10:49:18 PM EDT [facility] Name Value Range Interpretation Code Description Data Melany rce(s) Supporting Document(s) Progress Note [facility] UZXCBs9oLbYVCdGp07/FJFtuCWBvu6ZdHZjgVXz7AJjuUKLjV3NmVYJ8lJ2yIJW0ASwWBfJiRfVvAbPw lbm [file] [id number]= ID Date Data Source [id number] 08/13/2019 09:24:00 AM EDT [facility] Name Value Range Interpretation Code Description Data Melany rce(s) Supporting Document(s) SARS CORONAVIRUS 2 RNA [facility] This lab was ordered by [facility] and reported by [facility]. ID Date Data Source [id number] 05/28/2019 10:02:00 AM EST [facility] Name Value Range Interpretation Code Description Data Melany rce(s) Supporting Document(s) Carcinoembryonic Ag [Mass/volume] in Serum or Plasma < 0.5 ng/mL Normal (applies to non-numeric results) [facility], ) THE CEA ASSAY IS PERFORMED ON THE [employer] BY CHEMILUMINESCENCE AND SHOULD NOT BE COMPARED INTERCHANGEABLY WITH OTHER METHODS. IT SHOULD NOT BE USED ALONE A SCREENING TEST OR DIAGNOSIS FOR THE PRESENCE OR ABSENCE OF MALIGNANT DISEASE. PREDICTIONS OF DISEASE RECURRENCE SHOULD NOT BE BASED SOLELY ON VALUES OBTAINED FROM SERIAL PATIENT SERUM VALUES. ID Date Data Source [id number] 05/15/2019 12:00:00 PM EST JUAN ([facility], ) Name Value Range Interpretation Code Description Data Melany rce(s) Supporting Document(s) Surgical pathology study (SEE NOTE) [facility] FINAL DIAGNOSIS Rectosigmoid mass, biopsies: Moderately differentiated adenocarcinoma of colon. -4/TR 05/18/2019 - 1326 CLINICAL DIAGNOSIS Rectal bleeding 05/18/2019 - 726 GROSS DIAGNOSIS Received in formalin labeled "rectosigmoid mass" are several fragments of ramos soft tissue aggregating 1 x 1 x 0.3 cm. All in one. -YZ 05/18/2019 - 726 Signed Renetta Nogueira M.D. 05/18/2019 1342 Procedure Social History Code Duration Value Status Description Data Source(s ) Smoking 01/25/2020 12:00:00 AM EDT Never Smoker completed Never S moker eCW1 ([facility]) Vital Signs ID Date Data Source UNK Name Value Range Interpretation Code Description Data Source(s) Body surface area Derived from formula 2.02 m2 2.02 m2 [facility] ([facility]) Body weight 82.102 kg 82.102 kg [facility] ([facility]) [place] body weight 172 [lb_av] 172 [lb_av] [facility] Body mass index (BMI) [Ratio] 25.2 kg/m2 25.2 k g/m2 [facility] ([facility]) Body weight 181.00 [lb_av] 181.00 [lb_av] [facility] ([facility]) Body height 71 [in_i] 71 [in_i] [facility] ([facility]) 5'11" Diastolic blood pressure 86 mm[Hg] 86 mm[Hg] [facility] ([facility]) Systolic blood pressure 145 mm[Hg] 145 mm[Hg] [facility] Diastolic blood pressure mm[Hg] eCW1 ([facility]) Systolic blood pressure 128 mm[Hg] 128 mm[Hg] e CW1 ([facility]) Body temperature 97.9 [degF] 97.9 [degF] eCW1 ( [facility]) Respiratory rate 17 /min 17 /min eCW1 ([facility]) Heart rate 93 /min 93 /min eCW1 ([facility]) Body mass index (BMI) [Ratio] 27.76 kg/m2 27.76 kg/m2 eCW1 ([facility]) Body height 69 [in_i] 69 [in_i] eCW1 ([facility]) Body weight 188 [lb_av] 188 [lb_av] eCW1 ([facility]) Diastolic blood pressure 72 mm[Hg] 72 mm[Hg] [facility] ([facility]) Systolic blood pressure 120 mm[Hg] 120 mm[Hg] M EDENT ([facility]) Body surface area Derived from formula 2.00 m2 2.00 m2 [facility] ([facility]) Body weight 80.060 kg 80.060 kg [facility] ([facility]) [place] body weight 172 [lb_av] 172 [lb_av] MED[facility] T ([facility]) Body mass index (BMI) [Ratio] 24.6 kg/m2 24.6 k g/m2 [facility] ([facility]) Body weight 176.50 [lb_av] 176.50 [lb_av] [facility] T ([facility]) Body height 71 [in_i] 71 [in_i] [facility] ([facility]) 5'11" Diastolic blood pressure mm[Hg] eCW1 ([facility]) Systolic blood pressure 128 mm[Hg] 128 mm[Hg] e CW1 ([facility]) Body temperature 99.2 [degF] 99.2 [degF] eCW1 ( [facility]) Respiratory rate 17 /min 17 /min eCW1 ([facility]) Heart rate 96 /min 96 /min eCW1 ([facility]) Body mass index (BMI) [Ratio] 26.58 kg/m2 26.58 kg/m2 W1 ([facility]) Body height 69 [in_us] 69 [in_us] eCW1 ([facility]) Body weight Measured 180 [lb_av] 180 [lb_av] eC W1 ([facility]) Diastolic blood pressure 93 mm[Hg] 93 mm[Hg] eCW1 ([facility]) Systolic blood pressure 146 mm[Hg] 146 mm[Hg] e CW1 ([facility]) Body temperature 97.9 [degF] 97.9 [degF] eCW1 ( [facility]) Respiratory rate 16 /min 16 /min eCW1 ([facility]) Heart rate 82 /min 82 /min eCW1 ([facility]) Body mass index (BMI) [Ratio] 27.02 kg/m2 27.02 kg/m2 eCW1 ([facility]) Body height 69 [in_us] 69 [in_us] eCW1 ([facility]) Body weight Measured 183 [lb_av] 183 [lb_av] eC W1 ([facility]) Diastolic blood pressure mm[Hg] eCW1 ([facility]) Systolic blood pressure 122 mm[Hg] 122 mm[Hg] e CW1 ([facility]) Body temperature 98.2 [degF] 98.2 [degF] eCW1 ( [facility]) Respiratory rate 17 /min 17 /min eCW1 ([facility]) Heart rate 87 /min 87 /min eCW1 ([facility]) Body mass index (BMI) [Ratio] 26.87 kg/m2 26.87 kg/m2 eCW1 ([facility]) Body height 69 [in_us] 69 [in_us] eCW1 ([facility]) Body weight Measured 182 [lb_av] 182 [lb_av] eC W1 ([facility]) Body weight 82.669 kg 82.669 kg MEDENT ([facility], ) Body mass index (BMI) [Ratio] 25.4 kg/m2 25.4 k g/m2 MEDENT ([facility], ) Body weight 182.25 [lb_av] 182.25 [lb_av] MEDEN T ([facility], ) Body height 71 [in_i] 71 [in_i] MEDENT ([facility], ) 5'11" Diastolic blood pressure 90 mm[Hg] 90 mm[Hg] [facility] ([facility]) Systolic blood pressure 144 mm[Hg] 144 mm[Hg] [facility] Body weight 84.823 kg 84.823 kg [facility] ([facility]) Body mass index (BMI) [Ratio] 26.1 kg/m2 26.1 k g/m2 MEDENT ([facility]) Body weight 187.00 [lb_av] 187.00 [lb_av] MEDEN T ([facility]) Body height 71 [in_i] 71 [in_i] [facility] ([facility]) 5'11" Diastolic blood pressure 88 mm[Hg] 88 mm[Hg] [facility] ([facility]) Systolic blood pressure 131 mm[Hg] 131 mm[Hg] [facility] ([facility]) Diastolic blood pressure 78 mm[Hg] 78 mm[Hg] eCW1 ([facility]) Systolic blood pressure 136 mm[Hg] 136 mm[Hg] e CW1 ([facility]) Body temperature 98.4 [degF] 98.4 [degF] W1 ( [facility]) Respiratory rate 18 /min 18 /min W1 ([facility]) Heart rate 76 /min 76 /min W1 ([facility]) Body mass index (BMI) [Ratio] 27.20 kg/m2 27.20 kg/m2 W1 ([facility]) Body height 69 [in_us] 69 [in_us] eCW1 ([facility]) Body weight Measured 184.2 [lb_av] 184.2 [lb_av ] eCW1 ([facility]) Diastolic blood pressure 75 mm[Hg] 75 mm[Hg] eCW1 ([facility]) Systolic blood pressure 133 mm[Hg] 133 mm[Hg] e CW1 ([facility]) Body temperature 96.1 [degF] 96.1 [degF] eCW1 ( [facility]) Respiratory rate 18 /min 18 /min eCW1 ([facility]) Heart rate 93 /min 93 /min eCW1 ([facility]) Body mass index (BMI) [Ratio] 27.17 kg/m2 27.17 kg/m2 eCW1 ([facility]) Body height 69 [in_us] 69 [in_us] eCW1 ([facility]) Body weight Measured 184 [lb_av] 184 [lb_av] eC W1 ([facility]) ID Date Data Source [id number] 11/20/2019 10:49:23 PM EDT [facility] Name Value Range Interpretation Code Description Data Source(s) WEIGHT RECORDED 187 lb 187 lb [facility] Body height Measured 67 in 67 in [facility]
--- OUTSIDE RECORDS SUMMARY | 2020-06-14 12:12 | CCD | Continuity of Care Document ---
Author Author Albino ALMONTE MD Organization Unknown Address [address] [place] [id number] Phone [phone] Care Team Providers Care Physician Coding Specialist Name Role Phone Gely Baltazar AUTM [phone] Konstantin Almonte MD AUTM [phone] Problems Description No Information Available Social History Type Date Description Comments Sex Unknown ETOH Use Occasionally consumes alcohol ETOH Use Rarely consumes alcohol Tobacco Use Start: Unknown Denies Smoking Recreational Drug Use Denies Drug Use Allergies, Adverse Reactions, Alerts Active Allergies Reaction Severity Comments Date Penicillins 04/23/2013 Sulfa 04/23/2013 Medications Active Medications SIG Qnty Indications Ordering Provide r Date Suprep Bowel Prep Kit 17.5-3.13-1.6GM/177ML Solution as directed - see dr mathew instructions 1Kit C19 Konstantin Almonte MD 06/01/2020 Milk Of Magnesia 7.75% Suspension take 45 milliliters by mouth about 1-2 days before colonoscopy prep 360ml C19 Konstantin Almonte MD 06/01/2020 Immunizations Description No Information Available Vital Signs Date Vital Result Comment 06/01/2020 10:08am BP Systolic 145 mmHg BP Diastolic 86 mmHg Height 71 inches 5'11" Weight 181.00 lb BMI (Body Mass Index) 25.2 kg/m2 [place] Body Weight 172 lb Weight 82.102 kg BSA (Body Surface Area) 2.02 m2 06/25/2019 8:42am BP Systolic 120 mmHg BP Diastolic 72 mmHg Height 71 inches 5'11" Weight 176.50 lb BMI (Body Mass Index) 24.6 kg/m2 [place] Body Weight 172 lb Weight 80.060 kg BSA (Body Surface Area) 2.00 m2 Results Description No Information Available Procedures Description No Information Available Medical Devices Description No Information Available Encounters Type Date Location Provider Dx Diagnosis Office Visit 06/01/2020 10:15a [facility] Konstantin Almonte MD 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 mosis status Assessments Date Code Description Provider 06/01/2020 C19 Malignant neoplasm of rectosigmo id junction Konstantin Almonte MD 06/01/2020 Z98.0 Intestinal bypass and anastomosi s status Konstantin Almonte MD Plan of Treatment 06/01/2020 - Konstantin Almonte MD* C19 Malignant neoplasm of rectosigmoid junction * Z98.0 Intestinal bypass and anastomosis status * * New Medication:* Suprep Bowel Prep Kit 17.5-3.13-1.6 GM/177ML * Milk Of Magnesia 7.75 % * New Orders:* Colonoscopy, Ordered: 06/01/20 * Recommendations:* I would recommend he have a colonoscopy now, and would repeat colonoscopy every 2 years for next 6-8 years (in view of early appearance of interval colon cancer). He is currently in remission. He needs 1 year post op colonoscopy Functional Status Description No Information Available Mental Status Description No Information Available Referrals Description No Information Available
[2020-06-14] MEDS ORDERED: propofoL 200 MG/20 ML VIAL As Ordered ONE ×2 (14:48→14:55)
[2020-06-14] MEDS ORDERED: LIDOCAINE 2% 100MG/5ML SDV (FOR ANES.) As Ordered ONE (15:01)
--- NOTE | 2020-06-14 15:22 | ROOR ---
Patient Name: Albino Russ Procedure Date: 06/14/2020 2:47 PM Date of : 1960 Age: 59 Room: [facility] Gender: Male Note Status: Finalized Procedure: Colonoscopy Indications: High risk colon cancer surveillance: Personal history of colon cancer Providers: Konstantin ALMONTE MD Referring MD: [facility] Requesting Provider: Medicines: Monitored Anesthesia Care Complications: No immediate complications. Procedure: Pre-Anesthesia Assessment: - The heart rate, respiratory rate, oxygen saturations, blood pressure, adequacy of pulmonary ventilation, and response to care were monitored throughout the procedure. The Colonoscope was introduced through the anus and advanced to the cecum, identified by appendiceal orifice and ileocecal valve. The colonoscopy was performed without difficulty. The patient tolerated the procedure well. The quality of the bowel preparation was fair. Findings: The perianal and digital rectal examinations were normal. There was evidence of a prior end-to-end colo-rectal anastomosis at 13 cm proximal to the anus. The anastomosis was characterized by erythematous, friable polypoid tissue. This was biopsied with a cold forceps for histology. The colon exam was otherwise without abnormality. Impression: - Preparation of the colon was suboptimal/fair. - End-to-end colo-rectal anastomosis at 13 cm from verge. The anastomosis is characterized by erythematous, friable polypoid tissue. Biopsied to r/o recurrent malignancy. - The colon examination was otherwise normal. Recommendation: - Await pathology results. Procedure Code(s): --- Professional --- 00758, Colonoscopy, flexible; with biopsy, single or multiple Diagnosis Code(s): --- Professional --- Z85.038, Personal history of other malignant neoplasm of large intestine CPT copyright 2019 [employer]. All rights reserved. The codes documented in this report are preliminary and upon middle card tender review may be revised to meet current compliance requirements. Konstantin Almonte MD Konstantin ALMONTE MD 06/14/2020 3:22:20 PM Electronically signed by Konstantin ALMONTE MD Number of Addenda: 0 Note Initiated On: 06/14/2020 2:47 PM Estimated Blood Loss: Estimated blood loss: none.
[2020-06-14 15:35] VITALS: BP 129/83
== END 2020-06-14 15:45 | disposition home or self-care (01) ==
LOC: M OPP 12:03
PROVIDERS: ATTEND Internal Medicine Gastroenterology
DX: Z12.11 Encounter for screening for malignant neoplasm of colon (principal); Z85.038 Personal history of other malignant neoplasm of large intestine; K63.5 Polyp of colon; Z85.528 Personal history of other malignant neoplasm of kidney; Z88.0 Allergy status to penicillin; Z88.2 Allergy status to sulfonamides; Z79.899 Other long term (current) drug therapy; Z80.3 Family history of malignant neoplasm of breast; Z82.49 Family history of ischemic heart disease and other diseases of the circulatory system

== ENCOUNTER → 2020-08-02 | Outpatient (POV) | payer OTHER ==
[~2020-08-02] VITALS: Ht 180.3 cm; Wt 80.5 kg
[~2020-08-02] MED LIST changes: -NS 1,000 ML IV ONE
[2020-08-02 11:05] VITALS: BP 147/90
--- NOTE | 2020-08-04 09:16 | IRPN ---
[facility] IR Progress Note IR Progress Note DATE: Aug 02, 2020 FOLLOW-UP: Port placed 1 year ago by me for treatment for colon cancer. Patient has completed treatment. Port worked well. Patient would like port removed. Patient is not on any blood thinners. ON EXAMINATION: On examination, port site appears good. No redness, cellulitis or tenderness. IMPRESSION: Patient will be scheduled for port removal. Thank you for this referral Allergies Coded Allergies: Penicillins (Verified Allergy, Unknown, RXN A CHILD - UNKNOWN, 06/15/19) as child unaware of reaction type Sulfa (Sulfonamide Antibiotics) (Verified Allergy, Unknown, 06/15/19) as child, unaware of reaction type VS,Fishbone, I+O VS, Fishbone, I+O Vital Signs Date Time Temp Pulse Resp B/P (MAP) Pulse Ox O2 Delivery O2 Flow Rate FiO2 08/02/20 11:05 97.9 77 20 147/90 (109) 97 Room Air MARIA DEL CARMEN THOMPSON MD Aug 04, 2020 09:16
== END ==
LOC: M IRPOV 11:00
PROVIDERS: ATTEND Radiology Diagnostic Radiology
DX: Z45.2 Encounter for adjustment and management of vascular access device (principal); C18.9 Malignant neoplasm of colon, unspecified; Z88.0 Allergy status to penicillin; Z88.2 Allergy status to sulfonamides

== ENCOUNTER → 2020-08-09 | Outpatient (CLI) | payer OTHER ==
[2020-08-09 13:25] LABS: BLOOD UREA NITROGEN 23 MG/DL (7-18); CALCIUM LEVEL 9.7 MG/DL (8.5-10.1); CARBON DIOXIDE LEVEL 30 MEQ/L (21-32); CHLORIDE LEVEL 104 MEQ/L (98-107); CHOLESTEROL LEVEL 210 MG/DL (<200); CHOLESTEROL RISK RATIO 4.117 (<5); CREATININE FOR GFR 1.15 MG/DL (0.70-1.30); GLOMERULAR FILTRATION RATE > 60.0 (>56); GLUCOSE, FASTING 90 MG/DL (70-100); HDL CHOLESTEROL 51 MG/DL (>40); LDL CHOLESTEROL 138 MG/DL (<100); NON-HDL-C 159 MG/DL; POTASSIUM SERUM 4.9 MEQ/L (3.5-5.1); SODIUM LEVEL 138 MEQ/L (136-145); TRIGLYCERIDES LEVEL 106 MG/DL (<150)
== END ==
LOC: M WUC 09:47
PROVIDERS: ATTEND Nurse Practitioner Family
DX: Z00.00 Encounter for general adult medical examination without abnormal findings (principal)

== ENCOUNTER → 2020-09-06 | Outpatient (POV) | payer OTHER ==
[~2020-09-06] VITALS: Ht 180.3 cm; Wt 81.8 kg
[2020-09-06 11:10] VITALS: BP 132/89
--- NOTE | 2020-09-07 10:51 | IRPN ---
[facility] IR Progress Note IR Progress Note DATE: September 06, 2020 FOLLOW-UP: Patient is status post port removal. Patient states he is doing well without fevers or chills or pain. ON EXAMINATION: Port removal site appears to be healing well. Steri-Strips are still in place. No redness, swelling or discharge IMPRESSION: Doing well status post port removal. No further follow-up scheduled unless initiated by patient and/or referring provider. Thank you for this referral Allergies Coded Allergies: Penicillins (Verified Allergy, Unknown, RXN A CHILD - UNKNOWN, 06/15/19) as child unaware of reaction type Sulfa (Sulfonamide Antibiotics) (Verified Allergy, Unknown, 06/15/19) as child, unaware of reaction type VS,Fishbone, I+O VS, Fishbone, I+O Vital Signs Date Time Temp Pulse Resp B/P (MAP) Pulse Ox O2 Delivery O2 Flow Rate FiO2 09/06/20 11:10 97.2 76 20 132/89 (103) 97 Room Air MARIA DEL CARMEN THOMPSON MD September 07, 2020 10:51
== END ==
LOC: M IRPOV 11:02
PROVIDERS: ATTEND Radiology Diagnostic Radiology
DX: Z45.2 Encounter for adjustment and management of vascular access device (principal)

== ENCOUNTER → 2020-11-12 | Outpatient (CLI) | payer OTHER | LOC: M LABSMTC 09:03 | PROVIDERS: ATTEND Anesthesiology | DX: Z01.812 Encounter for preprocedural laboratory examination (principal); Z20.822 Contact with and (suspected) exposure to COVID-19 ==

== ENCOUNTER 2020-11-17 07:29 | Day surgery (SDC) | payer OTHER ==
[~2020-11-17] VITALS: Ht 180.3 cm; Wt 79.6 kg
[~2020-11-17 07:29] MED LIST changes: +CLINDAMYCIN 600 MG in IV 1 EA IV ONE; +LIDOCAINE 1% MDV 20ML VIAL SQ PRN; +LR 1,000 ML IV ONE
[2020-11-17] MEDS ORDERED: SUGAMMADEX SODIUM 500 MG/5 ML VIAL (BRIDION) As Ordered ONE (08:09)
[2020-11-17] MEDS ORDERED: LIDOCAINE 2% 100MG/5ML SDV (FOR ANES.) As Ordered ONE (08:09)
[2020-11-17] MEDS ORDERED: ONDANSETRON 4MG/2ML VIAL As Ordered ONE (08:09)
[2020-11-17] MEDS ORDERED: ROCURONIUM BROMIDE 50 MG/5 ML VIAL As Ordered ONE (08:09)
[2020-11-17] MEDS ORDERED: ACETAMINOPHEN 1000MG 100ML IV BTL (OFIRMEV) (J0131 PER 10MG) As Ordered ONE (08:09)
[2020-11-17] MEDS ORDERED: propofoL 200 MG/20 ML VIAL As Ordered ONE (08:09)
[2020-11-17] MEDS ORDERED: dexameTHASONE 4 MG/ML 1ML VIAL (J1100 PER 1MG) As Ordered ONE (08:09)
[2020-11-17] MEDS ORDERED: KETOROLAC 60MG 2ML VIAL As Ordered ONE (08:09)
[2020-11-17] MEDS ORDERED: fentaNYL 100 MCG/2 ML INJECTION (J3010) As Ordered ONE (08:10)
[2020-11-17] MEDS ORDERED: MIDAZOLAM INJ 2MG/2ML VIAL (J2250 PER 1MG) As Ordered ONE (08:10)
[2020-11-17] MEDS ORDERED: BUPIVACAINE/EPIN 0.25% 30 ML VIAL As Ordered ONE (08:51)
[2020-11-17] MEDS ORDERED: fentaNYL 100 MCG/2 ML INJECTION (J3010) IV PRN (11:20)
[2020-11-17] MEDS ORDERED: LR 1,000 ML IV SCH (11:20)
[2020-11-17] MEDS ORDERED: oxyCODONE 5MG TAB PO PRN (11:20)
[2020-11-17] MEDS ORDERED: ONDANSETRON 4MG/2ML VIAL IV PRN (11:20)
[2020-11-17] MEDS ORDERED: NORCO, ANEXSIA 5/325MG TABLET (HYDROcodone/ACETAMINOPHEN) PO PRN (11:25)
[2020-11-17 11:55] VITALS: BP 145/87
--- NOTE | 2020-11-17 11:56 | RO ---
OPERATIVE NOTE DATE OF OPERATION: 11/17/2020 PREOPERATIVE DIAGNOSIS: Left inguinal hernia. POSTOPERATIVE DIAGNOSIS: Left inguinal hernia. PROCEDURE: Robotic left inguinal hernia repair. SURGEON: Dayo Magaña DO CREW SCHEDULER: Asuncion Cunningham ANESTHESIA: General. EBL: 5. COMPLICATIONS: None. INDICATIONS FOR PROCEDURE: The patient is a 60-year-old male who presents with persistent left inguinal bulge for a couple of years. He held off on surgery to have colon cancer and renal cancer removed instead. He is now completely healed from those and would like to have hernia repaired. Risks and benefits of the procedure not limited to but including bleeding, infection, hernia recurrence, hernia formation, damage to surrounding structures, need for further surgery were discussed in detail with the patient, informed consent was obtained. Procedure was planned. DESCRIPTION OF PROCEDURE: The patient was brought back to operating room 7. After sufficient sedation the abdomen was sterilely prepped and draped. Time out was done to confirm proper patient, proper procedure. Following that an 8 mm incision was made in left upper quadrant, Veress needle was inserted and the abdomen was insufflated to 15 mmHg. Veress needle was then removed. An 8 mm Optiview port was used to gain access to the abdomen. Once the abdomen was entered another 8 mm port was placed just left of midline in the upper mid abdomen, another one in the right upper quadrant. Robot was docked to the ports. From the console left inguinal indirect hernia was easily identifiable. Curved incision was made into the peritoneum into the preperitoneal surface. Preperitoneal space was then dissected free medially and laterally all the way to the pubic symphysis. The cord structures were then carefully dissected free from the hernia sac and the hernia sac was completely dissected and reduced posteriorly. Once it was completely reduced it was dissected free. A Bard 3DMax light medium mesh was placed into the left preperitoneal space. The medial border of the mesh was sutured to the pubic symphysis with 2-0 Vicryl suture. The peritoneum was then closed over top of the mesh with running 2-0 V-Loc incorporating the redundant hernia sac within the closure. Once that was completed the abdomen was desufflated. Skin incisions were closed with 4-0 Vicryl subcuticular sutures. The abdomen was cleaned and dried. Steri-Strips, 4 x 4 and tape were applied. This ended the procedure.
--- NOTE | 2020-11-17 18:45 | ECGEPIP ---
[facility] Test Date: 2020-11-17 Pat Name: DEION BARR Department: Room: - Gender: Male Director Of Dietary: ALEXANDRA : 1960 Requested By: Ulises Huston Order Number: [id number] Reading MD: Noé Salcedo Measurements Intervals [place] Rate: 70 P: 24 CA: 168 QRS: -27 QRSD: 86 T: 33 QT: 368 QTc: 397 Interpretive Statements Normal sinus rhythm Septal infarct , age undetermined Inferior infarct , age undetermined No prior tracing in the system Electronically Signed on 11-17-2020 18:45:02 EDT by Noé Salcedo
== END 2020-11-17 11:57 | disposition home or self-care (01) ==
LOC: M SDC 07:29
PROVIDERS: ATTEND Surgery
DX: K40.30 Unilateral inguinal hernia, with obstruction, without gangrene, not specified as recurrent (principal); Z88.0 Allergy status to penicillin; Z88.2 Allergy status to sulfonamides
CPT/HCPCS: 49650; 93005; C1781; J0131; J1100; J1885; J2250; J2405; J3010; S2900

== ENCOUNTER → 2021-02-06 | Outpatient (CLI) | payer OTHER ==
[~2021-02-06] MED LIST changes: -CLINDAMYCIN 600 MG in IV 1 EA IV ONE; +GASTROGRAFIN SOLUTION 30ML (Q9963) As Ordered ONE; +ISOVUE-370 76% 100ML VIAL As Ordered ONE; -LIDOCAINE 1% MDV 20ML VIAL SQ PRN; -LR 1,000 ML IV ONE
--- NOTE | 2021-02-08 05:48 | REP ---
INDICATION: COLON CA. COMPARISON: 10/29/2019 TECHNIQUE: Axial contrast-enhanced images from the lung bases to the pubic symphysis using oral and 100 cc Isovue 370 intravenous contrast material. Delayed images of the abdomen obtained along with coronal and sagittal reformations. This CT examination was performed using the following dose reduction techniques: Automated exposure control, adjustment of mA and/or kv according to the patient's size, and the use of iterative reconstruction technique. FINDINGS: Liver, spleen, pancreas, gallbladder, bilateral adrenal glands and left kidney are normal/stable. Small hepatic hypodensities are unchanged and consistent with cyst and or hemangioma. Evidence for prior right nephrectomy with normal appearance to the renal bed. The enteric system including stomach, small, and large bowel appears normal. No evidence for obstruction or acute inflammatory process. Normal terminal ileum and appendix are identified in the right lower quadrant. Prior partial sigmoid resection noted. Pelvis demonstrates normal bladder and age-appropriate prostate/seminal vesicles. No ascites. No free air. No intraperitoneal or retroperitoneal adenopathy. Abdominal aorta and vasculature appear normal. Musculoskeletal structures are intact and without acute osseous abnormality. IMPRESSION: No acute abdominopelvic pathology appreciated. No evidence for malignancy or metastatic disease. <Electronically signed by Joseph Kyle > 02/08/21 [id number]
== END ==
LOC: M RAD 12:58
PROVIDERS: ATTEND Specialist
DX: C18.9 Malignant neoplasm of colon, unspecified (principal); Z90.49 Acquired absence of other specified parts of digestive tract; Z90.5 Acquired absence of kidney
CPT/HCPCS: 74177; Q9963; Q9967

== ENCOUNTER → 2022-02-19 | Outpatient (CLI) | payer OTHER | LOC: M RAD 10:58 | PROVIDERS: ATTEND Internal Medicine Hematology & Oncology | DX: C18.9 Malignant neoplasm of colon, unspecified (principal); K76.0 Fatty (change of) liver, not elsewhere classified; M47.816 Spondylosis without myelopathy or radiculopathy, lumbar region; K76.89 Other specified diseases of liver | CPT/HCPCS: 71260; 74177; Q9963; Q9967 ==

== ENCOUNTER → 2022-04-23 | Outpatient (CLI) | payer OTHER ==
[~2022-04-23] MED LIST changes: -GASTROGRAFIN SOLUTION 30ML (Q9963) As Ordered ONE; -ISOVUE-370 76% 100ML VIAL As Ordered ONE
[2022-04-23 09:24] LABS: ALBUMIN 4.3 G/DL (3.2-5.2); ALKALINE PHOSPHATASE 41 U/L (46-116); ALT/SGPT 31 U/L (7.0-40); AST/SGOT 18 U/L (<34); BILIRUBIN,TOTAL 0.8 MG/DL (0.3-1.2); BLOOD UREA NITROGEN 24 MG/DL (9-23); CALCIUM LEVEL 9.5 MG/DL (8.3-10.6); CARBON DIOXIDE LEVEL 25 MMOL/L (20-31); CHLORIDE LEVEL 106 MMOL/L (98-107); CHOLESTEROL LEVEL 175 MG/DL (<200); CHOLESTEROL RISK RATIO 3.55 (<5); CREATININE FOR GFR 1.07 MG/DL (0.70-1.30); GLOMERULAR FILTRATION RATE > 60.0 (>49); GLUCOSE, FASTING 107 MG/DL (74-106); HDL CHOLESTEROL 49.2 MG/DL (>40); LDL CHOLESTEROL 109.6 MG/DL (<100); NON-HDL-C 126 MG/DL; POTASSIUM SERUM 4.9 MMOL/L (3.5-5.1); SODIUM LEVEL 142 MMOL/L (136-145); TRIGLYCERIDES LEVEL 81 MG/DL (<150)
== END ==
LOC: M LAB 08:08
PROVIDERS: ATTEND Family Medicine
DX: E66.3 Overweight (principal)

== ENCOUNTER 2022-09-18 06:38 | Day surgery (SDC) | payer OTHER ==
[~2022-09-18] VITALS: Ht 180.3 cm; Wt 77.1 kg
[~2022-09-18 06:38] MED LIST changes: +NS 1,000 ML IV ONE
[2022-09-18] MEDS ORDERED: propofoL 200 MG/20 ML VIAL As Ordered ONE ×2 (07:18→07:57)
[2022-09-18] MEDS ORDERED: LIDOCAINE 2% INJ 100 MG/5 ML SYRINGE As Ordered ONE (07:18)
[2022-09-18 08:25] VITALS: BP 115/72
== END 2022-09-18 08:29 | disposition home or self-care (01) ==
LOC: M OPP 06:38
PROVIDERS: ATTEND Internal Medicine Gastroenterology
DX: Z85.038 Personal history of other malignant neoplasm of large intestine (principal); D12.3 Benign neoplasm of transverse colon; K64.8 Other hemorrhoids; Z98.0 Intestinal bypass and anastomosis status; Z88.0 Allergy status to penicillin; Z88.2 Allergy status to sulfonamides

== ENCOUNTER → 2022-10-24 | Outpatient (CLI) | payer OTHER ==
[~2022-10-24] MED LIST changes: -NS 1,000 ML IV ONE
[2022-10-24 08:31] LABS: CHOLESTEROL RISK RATIO 3.38 (<5); HDL CHOLESTEROL 59.1 MG/DL (>40); LDL CHOLESTEROL 129.5 MG/DL (<100); NON-HDL-C 140.9 MG/DL
== END ==
LOC: M LAB 07:41
PROVIDERS: ATTEND Internal Medicine Cardiovascular Disease
DX: R94.31 Abnormal electrocardiogram [ECG] [EKG] (principal)

== ENCOUNTER → 2022-11-19 | Outpatient (CLI) | payer OTHER ==
[2022-11-19 09:43] LABS: HEMATOCRIT 45.2 % (42.0-52.0); HEMOGLOBIN 15.3 g/dl (13.5-17.5); MEAN CORPUSCULAR HEMOGLOBIN 29.8 pg (27.0-33.0); MEAN CORPUSCULAR HGB CONC 33.8 g/dl (32.0-36.5); MEAN CORPUSCULAR VOLUME 88.1 fl (80.0-96.0); PLATELET COUNT, AUTOMATED 160 10^3/uL (150-450); RED BLOOD COUNT 5.13 10^6/uL (4.30-6.10)
[2022-11-19 10:10] LABS: ALBUMIN 4.3 G/DL (3.2-5.2); BLOOD UREA NITROGEN 21 MG/DL (9-23); CALCIUM LEVEL 9.2 MG/DL (8.3-10.6); CARBON DIOXIDE LEVEL 29 MMOL/L (20-31); CHLORIDE LEVEL 107 MMOL/L (98-107); CREATININE FOR GFR 1.07 MG/DL (0.70-1.30); GLOMERULAR FILTRATION RATE > 60.0 (>49); GLUCOSE, FASTING 97 MG/DL (74-106); PHOSPHORUS LEVEL 3.3 MG/DL (2.4-5.1); POTASSIUM SERUM 4.4 MMOL/L (3.5-5.1); SODIUM LEVEL 141 MMOL/L (136-145)
== END ==
LOC: M LAB 08:37
PROVIDERS: ATTEND Internal Medicine Cardiovascular Disease
DX: I25.119 Atherosclerotic heart disease of native coronary artery with unspecified angina pectoris (principal)

== ENCOUNTER → 2022-11-26 | Outpatient (CLI) | payer OTHER ==
[2022-11-26 08:58] LABS: ALBUMIN 4.2 G/DL (3.2-5.2); BILIRUBIN,DIRECT 0.3 MG/DL (<0.4); BILIRUBIN,TOTAL 0.7 MG/DL (0.3-1.2); CHOLESTEROL RISK RATIO 2.5 (<5); HDL CHOLESTEROL 59.8 MG/DL (>40); LDL CHOLESTEROL 80.2 MG/DL (<100); NON-HDL-C 90.2 MG/DL
== END ==
LOC: M LAB 07:54
PROVIDERS: ATTEND Internal Medicine Cardiovascular Disease
DX: E78.00 Pure hypercholesterolemia, unspecified (principal); I25.10 Atherosclerotic heart disease of native coronary artery without angina pectoris

== ENCOUNTER → 2023-03-28 | Outpatient (CLI) | payer OTHER ==
[~2023-03-28] MED LIST changes: +ASPI81TA26 PO; +ATOR1TAB21
== END ==
LOC: M EKG 09:06
PROVIDERS: ATTEND Internal Medicine Cardiovascular Disease
DX: I47.19 Other supraventricular tachycardia (principal)

== ENCOUNTER → 2023-04-05 | Outpatient (CLI) | payer OTHER ==
[~2023-04-05] MED LIST changes: +GASTROGRAFIN SOLUTION 30ML As Ordered ONE; +ISOVUE-370 76% 100ML VIAL As Ordered ONE
== END ==
LOC: M RAD 07:59
PROVIDERS: ATTEND Nurse Practitioner
DX: C18.9 Malignant neoplasm of colon, unspecified (principal); K76.89 Other specified diseases of liver; K40.90 Unilateral inguinal hernia, without obstruction or gangrene, not specified as recurrent; N40.0 Benign prostatic hyperplasia without lower urinary tract symptoms; K76.0 Fatty (change of) liver, not elsewhere classified
CPT/HCPCS: 71260; 74177; Q9963; Q9967

== ENCOUNTER → 2023-05-22 | Outpatient (CLI) | payer OTHER ==
[~2023-05-22] MED LIST changes: -GASTROGRAFIN SOLUTION 30ML As Ordered ONE; -ISOVUE-370 76% 100ML VIAL As Ordered ONE
== END ==
LOC: M PLAIMG 10:42
PROVIDERS: ATTEND Internal Medicine Cardiovascular Disease
DX: I08.3 Combined rheumatic disorders of mitral, aortic and tricuspid valves (principal)

== ENCOUNTER → 2023-09-23 | Outpatient (CLI) | payer OTHER ==
[~2023-09-23] MED LIST changes: +ISOVUE-370 76% 100ML VIAL As Ordered ONE
== END ==
LOC: M RAD 10:05
PROVIDERS: ATTEND Nurse Practitioner
DX: C18.9 Malignant neoplasm of colon, unspecified (principal); I25.10 Atherosclerotic heart disease of native coronary artery without angina pectoris; K76.0 Fatty (change of) liver, not elsewhere classified
CPT/HCPCS: 71260; Q9967